=== PATIENT | female | born 1965 | race Caucasian/White ===

== ENCOUNTER 2018-11-21 21:01 | Inpatient (IN) | payer BC, OTHER ==
--- NOTE | 2018-11-21 21:12 | ED ---
HPI Diabetic - HPI Summary HPI Summary: LEVEL 5 CAVEAT: HPI LIMITED DUE TO PT CONDITION, AMS A 52 y/o F brought in by ambulance presents to ED for suspected DKA. Pt was transferred from [facility]. Her glucose at [place] was around 1000. She has been non-compliant with her HTN and DM medications. 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 She was on 3L O2 en route to ED. She tested positive for opiates at [place], she goes to the pain clinic at [facility]. At bedside, when asked questions, patient repeatedly states, I dont really know right now. POC glucose was above range , 100.1 F rectal at bedside. ED PROVIDER MET PT AND EMS IN ROOM 8 UPON ARRIVAL. - History Of Current Complaint Hx Obtained From: EMS, Medical Records Hx From Patient Unobtainable Due To: Altered Mental Status Onset/Duration: Still Present Severity Currently: Severe Aggravating: Non-compliant - Allergies/Home Medications Allergies/Adverse Reactions: Allergies Allergy/AdvReac Type Severity Reaction Status Date / Time benzocaine Allergy Severe Swelling Verified 11/21/18 23:37 benzonatate Allergy Severe Airway Verified 11/21/18 23:54 Obstruction clindamycin AdvReac Severe Nausea Verified 11/21/18 23:54 fentanyl AdvReac Severe Nausea And Verified 11/21/18 23:54 Vomiting oxymorphone [From Opana] AdvReac Severe Headache Verified 11/22/18 00:11 naproxen AdvReac Intermediate Palpitation Verified 11/22/18 00:11 s sumatriptan AdvReac Intermediate Nausea Verified 11/22/18 00:11 PMH/Surg Hx/FS Hx/Imm Hx Previously Healthy: No Endocrine/Hematology History: Reports: Hx Diabetes Cardiovascular History: Reports: Hx Hypertension - CONTROL WITH MEDS Respiratory History: Reports: Hx Sleep Apnea GI History: Reports: Other GI Disorders - CHRONIC CONSTIPATION FROM OPIODS History: Reports: Other Problems/Disorders - MASS IN UTERUS YEARS AGO, WAS REMOVED Musculoskeletal History: Reports: Hx Arthritis, Other Musculoskeletal History - BACK INJURY 2009 Sensory History: Reports: Hx Contacts or Glasses - GLASSES Denies: Hx Hearing Aid Opthamlomology History: Reports: Hx Contacts or Glasses - GLASSES Neurological History: Reports: Hx Headaches - DAILY, Hx Migraine - 2 TIMES PER MONTHS, Other Neuro Impairments/Disorders - ADHD, LYMPADEMA IN FEET AND LEGS Psychiatric History: Reports: Hx Anxiety, Hx Depression - control with meds - Surgical History Surgery Procedure, Year, and Place: 2012 LUMBAR PAIN PUMP PLACEMENT 2012, [place]. 1985 CYST REMOVED FROM UTERUS AT AGE 19YEARS, [place], [place]. 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 Lives: With Family Alcohol Use: None Hx Substance Use: Yes Substance Use Type: Reports: Prescribed Substance Use Comment - Amount & Last Used: PAIN PUMP Hx Tobacco Use: Yes Smoking Status (MU): Light Every Day Tobacco Smoker Type: Cigarettes Amount Used/How Often: ON AND OFF FOR ABOUT 20 YEARS - 3-4 CIGARETTES PER DAY Have You Smoked in the Last Year: Yes Review of Systems - ROS Summary Review of Systems Summary: LEVEL 5 CAVEAT: ROS LIMITED DUE TO PT CONDITION, AMS All Other Systems Reviewed And Are Negative: No Physical Exam - Summary Physical Exam Summary: Constitutional: Well-developed, Well-nourished, Cooperative Skin: Warm, Dry, Bilateral feet and toes are cool to touch. HENT: Normocephalic; No Racoons eyes; No rand's sign; No abrasion; No contusion; No hemotympanum; No maxilla facial tenderness or instability; Dentition are smooth; No dental trauma; No trismus. Dry oral mucosa. Eyes: EOM normal, L pupil is 4mm, R pupil is 3mm, both pupils are reactive Neck: Trachea is midline. No stridor; No JVD; No step off; No posterior cervical spine tenderness Cardio: Rhythm regular, rate normal Heart sounds normal; Intact distal pulses; The pedal pulses are 2+ and symmetric. Radial pulses are 2+ and symmetric. Pulmonary/Chest wall: Effort normal; Breath sounds normal; Equal chest rise; No flail segment; No rib tenderness; No sternal tenderness Abd: Soft, Appearance normal. No distension; No tenderness; No palpable pulsatile mass; No Cullens sign; No Meyer-Turners sign Musculoskeletal: Full ROM and no tenderness at hips, ankles, shoulders, elbows and knees; No joint swelling; No vertebral body tenderness; No paraspinal tenderness; No step off or deformity of the spine; Pelvis is stable to lateral compression and rock. Neuro: Alert, Oriented x3, Strength 5/5 all extremities. : No blood at urethral meatus Psych: Mood and affect Normal Triage Information Reviewed: Yes Vital Signs Reviewed: Yes - Jesús Coma Scale Glascow Coma Scale Comments: GCS 13. Diagnostics - Laboratory Result Diagrams: 11/27/18 07:22 11/27/18 07:22 Lab Statement: Any lab studies that have been ordered have been reviewed, and results considered in the medical decision making process. - Radiology CXR Radiology Interpretation Completed By: ED Physician Summary of Radiographic Findings: No acute disease. - EKG 2119 Cardiac Rate: Tachycardia - 118bpm EKG Rhythm: Sinus Tachycardia Summary of EKG Findings: No STEMI. Re-Evaluation - Re-Evaluation First Eval Re-Evaluation Time: 00:00 Comment: Placing central line. Diabetic Course/Dx - Course Course Of Treatment: Pt is a 52 y/o F brought in by ambulance presents to [facility] ED for suspected DKA. Pt was transferred from [facility], her glucose there was around 1000. She has been non-compliant with her HTN and DM medications. 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 She was on 3L O2 en route to ED. She tested positive for opiates at [place], she goes to the pain clinic at [facility]. At bedside, when asked questions, patient repeatedly states, I dont really know right now. POC glucose was above range, 100.1 F rectal at bedside. Spoke with pt's , who says pt has had two days of dipsia and is not known to have DM. Pt will be signed out to Dr. Longoria at shift change pending imaging results , dx and dispo. - Diagnoses Differential Dx: Diabetic Ketoacidosis, Hyperglycemia, Hyperosmolar State, Other - [facility], most likely Provider Diagnoses: DKA (diabetic ketoacidosis), Hypernatremia, Dehydration - Critical Care Time Critical Care Time: 30-74 min - 60 mins Discharge - Sign-Out/Discharge Documenting (check all that apply): Sign-Out Patient Signing out patient TO: Guillermina Longoria - Discharge Plan Condition: Improved Disposition: ADMITTED TO [facility] - Billing Disposition and Condition Condition: IMPROVED Disposition: Admitted to [facility] - Attestation Statements Document Initiated by Pranayibe: Yes Documenting Scribe: Sugey Hairston Provider For Whom Pranayibe is Documenting (Include Credential): Dr. Jonah Roque MD Scribe Attestation: ISugey, scribed for Dr. Jonah Roque MD on 12/11/18 at 0739. Scribe Documentation Reviewed: Yes Provider Attestation: The documentation as recorded by the pranayibmed, Sugey Hairston accurately reflects the service I personally performed and the decisions made by me, Dr. Jonah Roque MD Status of Scribe Document: Viewed
[2018-11-21] MEDS ORDERED: NS 0.9% 1000 ML** 1,000 ML IV ONE ×2 (21:15→22:52)
[2018-11-21] MEDS ORDERED: Insulin IVPB 100 units/100 ml 100 UNITS/100 ML UNIT IVPB ONE (21:27)
[2018-11-21 22:14] LABS: ABS Basophils 0 10^3/ul (0-0.2); ABS Eosinophils 0 10^3/ul (0-0.6); ABS Lymphocytes 4.3 10^3/ul (1.0-4.8); ABS Monocytes 1.1 10^3/ul (0-0.8); ABS Neutrophils 8.3 10^3/ul (1.5-7.7); ABS Nucleated RBC 0 10^3/ul; Eosinophil % 0 %; Hematocrit 51 % (35-47); Hemoglobin 16.5 g/dl (12.0-16.0); Lymphocyte % 30.9 %; Mean Corpuscular HGB Conc 33 g/dl (31-36); Mean Corpuscular Hemoglobin 30 pg (27-31); Mean Corpuscular Volume 92 fL (80-97); Mean Platelet Volume 11.8 fL (7.4-10.4); Nucleated Red Blood Cells % 0.2; Platelet Count 186 10^3/ul (150-450); Red Cell Distribution Width 14 % (10.5-15); White Blood Count 13.8 10^3/ul (3.5-10.8)
[2018-11-21 22:23] LABS: Activated Partial Thrombo Time 28.3 seconds (26.0-36.3); INR 0.99 (0.77-1.02)
[2018-11-21 22:33] LABS: Albumin 3.2 g/dL (3.2-5.2); BUN/Creatinine Ratio 38.2 (8-20); Calcium 9.1 mg/dL (8.6-10.3); EGFR African American 49.2 (>60); EGFR Non-African American 40.7 (>60); Globulin 3.2 g/dL (2-4); Total Bilirubin 0.4 mg/dL (0.2-1.0); Total Protein 6.4 g/dL (6.4-8.9)
[2018-11-21 22:35] LABS: Troponin I 0.03 ng/mL (<0.04)
--- NOTE | 2018-11-21 22:41 | ED ---
Progress - Progress Note Progress Note: This pt was signed out by Dr. Roque, pending disposition, awaiting cat scans and lab results. Brain CT, as read by radiologist IMPRESSION: 1. Minimal chronic ischemic white matter change. 2. Otherwise negative noncontrast head CT. Pelvis CT, as read by radiologist IMPRESSION: 1. Implanted pump in the left lateral subcutaneous fat lateral to the anterior superior iliac crest. 2. Germain catheter in the bladder. 3. Degenerative facet arthropathy of the lower lumbar spine with mild bilateral neural foraminal stenosis at L5-S1. 4. Question of early sacroiliitis. 5. Otherwise negative CT pelvis. No fracture. Cervical spine CT, as read by radiologist IMPRESSION: 1. Essentially negative CT cervical spine. No fracture or subluxation is evident and no spinal or foraminal stenosis. 2. Multiple thyroid nodules measuring up to 12 mm. No follow up is needed. Dr. Longoria has reviewed these reports. Chest XR post central line placement, as read by ED physician Triple lumen catheter in place. The tip is in the superior vena cava. No pneumothorax. Pending official radiology report. Re-Evaluation - Re-Evaluation First Eval Re-Evaluation Time: 00:00 Comment: Placing central line. Course/Dx - Course Course Of Treatment: Pt was signed out by Dr. Roque, pending disposition, awaiting cat scans and lab results. Labs show WBC of 13.8, hemoglobin of 16.5, hematocrit of 51, sodium of 154, potassium of 2.6, anion gap of 21, BUN of 52, creatinine of 1.36, glucose of 572, serum osmolality of 365, lactic acid of 2.3. Brain CT is negative for an acute pathology. Cervical CT shows 1. Essentially negative CT cervical spine. No fracture or subluxation is evident and no spinal or foraminal stenosis. 2. Multiple thyroid nodules measuring up to 12 mm. No follow up is needed. Pelvic CT reveals 1. Implanted pump in the left lateral subcutaneous fat lateral to the anterior superior iliac crest. 2. Germain catheter in the bladder. 3. Degenerative facet arthropathy of the lower lumbar spine with mild bilateral neural foraminal stenosis at L5-S1. 4. Question of early sacroiliitis. 5. Otherwise negative CT pelvis. No fracture. I consulted with Dr. Smith, slitting machine operator helper, and reviewed pt's blood work with him. He recommended one half normal saline with 40 mEq of potassium and 200-300 CC/hour. I placed a triple lumen central line on the right internal jugular without any complications. Please see procedure note. Chest XR post central line placement shows triple lumen catheter in place. The tip is in the superior vena cava. No pneumothorax. Discussed the case with Dr. Randle, hospitalist, who accepted the pt for admission to the ICU. - Diagnoses Provider Diagnoses: DKA (diabetic ketoacidosis), Hypernatremia, Dehydration - Provider Notifications Discussed Care Of Patient With: Ricky Smith Time Discussed With Above Provider: 23:20 Instructed by Provider To: Other - I consulted with Dr. Smith, slitting machine operator helper, and reviewed pt's blood work with him. He recommended one half normal saline with 40 mEq of potassium and 200-300 CC/hour. [23:34] Discussed the case with Dr. Randle, hospitalist, who accepted the pt for admission. - Critical Care Time Critical Care Time: 30-74 min - 45 minutes Discharge - Sign-Out/Discharge Documenting (check all that apply): Patient Departure - [place] [facility] Sign-Out Receiving patient FROM: Jonah Roque Patient Received Moderate/Deep Sedation with Procedure: No - Discharge Plan Condition: Stable Disposition: ADMITTED TO [facility] Referrals: Daniel Ram MD [Medical Doctor] - - Attestation Statements Document Initiated by Scribe: Yes Documenting Scribe: Alejandra Abrams Provider For Whom Scribe is Documenting (Include Credential): Guillermina Longoria MD Scribe Attestation: I, Alejandra Abrams, scribed for Guillermina Longoria MD on 11/22/18 at 0043. Status of Scribe Document: Ready Procedures - Central Line Right Jugular Central Line Lumen: triple Central Line Procedure: betadine prep, sterile drapes applied, sterile dressing applied Central Line Position: internal jugular (R) Anesthesia: Lidocaine - 2% Complications: none Central Line Post Position: sutured, good blood return, position confirmed w/ CXR
[2018-11-21] MEDS ORDERED: Piperacillin/Tazobac ADVAN(*) 3.375 GM in NS 0.9% 100 ML* 100 ML IVPB ONE (22:52)
[2018-11-21] MEDS ORDERED: Naloxone* 0.4 MG/ML 1 ML VIAL IV PUSH ONE (22:52)
[2018-11-21] MEDS ORDERED: ED Vancomycin 1 GM/250 ML 1 GM/250 ML PREMIX.SET IVPB ONE (22:53)
[2018-11-21] MEDS ORDERED: NS 0.45% IVPB ONE ×3 (23:00→23:33)
[2018-11-21] MEDS ORDERED: NS 0.9% 1000 ML** 1,000 ML IV SCH (23:00)
[2018-11-21] MEDS ORDERED: POTASSIUM CHLORIDE IVPB ONE ×3 (23:00→23:33)
[2018-11-21 23:12] LABS: Potassium 2.6 mmol/L (3.5-5.0)
[2018-11-21] MEDS ORDERED: Lidocaine 2% EPI 1:200000 MPF*10-20 ML VIAL ONE (23:39)
[2018-11-21] MEDS ORDERED: NS 0.45% KCl 20 Meq 1000 ML* 1,000 ML IV SCH (23:45)
[2018-11-21] MEDS ORDERED: Zosyn per Pharmacy* NOTE FOLLOW UP SCH (23:45)
[2018-11-21] MEDS ORDERED: NS 0.9% w/ 40 Meq KCL 1000 ML* 1,000 ML IV SCH (23:45)
[2018-11-21] MEDS ORDERED: Vancomycin(*) 0 MG in NS 0.9% 250 ML* 250 ML IVPB SCH (23:45)
[2018-11-21] MEDS ORDERED: Ondansetron INJ* 2 MG/ML VIAL IV PRN (23:48)
[2018-11-22 00:12] LABS: C Reactive Protein 13.46 mg/L (<8.01)
[2018-11-22 00:28] LABS: TSH (Thyroid Stimulating Horm) 0.13 mcIU/mL (0.34-5.60)
[2018-11-22 00:44] LABS: Magnesium 1.6 mg/dL (1.9-2.7)
[2018-11-22] MEDS ORDERED: LORazepam INJ* 2 MG/ML 1 ML VIAL IV PUSH ONE (01:08)
[2018-11-22] MEDS ORDERED: LORazepam INJ* 2 MG/ML 1 ML VIAL ONE ×2 (01:10→05:20)
[2018-11-22] MEDS ORDERED: Vancomycin(*) 1,000 MG BAG/ADDV IVPB ONE (01:33)
[2018-11-22] MEDS ORDERED: NS 0.45% IVPB SCH (02:00)
[2018-11-22] MEDS ORDERED: POTASSIUM CHLORIDE IVPB SCH (02:00)
[2018-11-22 02:05] LABS: Free T4 0.75 ng/dL (0.61-1.12)
--- NOTE | 2018-11-22 02:52 | HP ---
CC: Primary care physician* HISTORY AND PHYSICAL: DATE OF ADMISSION: 11/21/18 TIME OF EVALUATION: 2300 PRIMARY CARE PHYSICIAN: Unknown. CHIEF COMPLAINT: Altered mental status. HISTORY OF PRESENT ILLNESS: This is a 52-year-old female with a past medical history of chronic pain with an intrathecal implant who presents to the emergency room from [place] [facility] with altered mental status, found to have blood glucose greater than 1000. Patient is still altered and history is obtained by the , who states over the past few days she has noticed increase in thirst, increase in polyuria. He thought that was just attributed to that she is on a water pill. She has also been having issues with constipation. Today, he found her falling asleep on the toilet and brought her to the emergency room for further evaluation. She does have issues with chronic lower extremity swelling with open sores on her leg, which is being managed by her primary care physician. He denied any fevers or chills. She has not been vomiting. She has been having issues with constipation, as mentioned. She does have chronic back pain. He states she has not been complaining that there has been an increase in worsening pain. Otherwise, review of systems limited due to patient's somnolence and altered mental status. At [place], the patient was started on an insulin drip and sent over to the emergency room for further workup. Here in the emergency room, patient had a line placed, she was continued on insulin drip, given more IV fluids, and referred to the hospitalist service for further evaluation. PAST MEDICAL HISTORY: 1. History of hypertension. 2. Per , she has erratic sleep habits. 3. Chronic low back pain after a fall, now with an intrathecal implant. 4. Chronic lower extremity edema. 5. Chronic wound. 6. Depression. MEDICATIONS: This list is from [place]. We will need to call the pharmacy to confirm. 1. Alprazolam 0.25 mg daily. 2. Amitriptyline 25 mg at bedtime. 3. Aspirin 81 mg daily. 4. Atenolol 25 mg daily. 5. Bumetanide 1 mg orally. 6. Bupropion XL 150 mg daily. 7. Keflex 500 mg daily. 8. Diclofenac. 9. Ellipta 50 mcg inhaled. 10. Morphine 15 mg. 11. Zofran 4 mg. 12. MiraLAX. 13. Topamax 25 mg daily. 14. Torsemide 20 mg daily. 15. Trazodone 100 mg daily. 16. Vitamin E 400 mg daily. 17. Ambien 5 mg daily. ALLERGIES: BENZOCAINE, BENZONATATE, OXYMORPHONE, NAPROXEN, SUMATRIPTAN, CLINDAMYCIN, FENTANYL. FAMILY HISTORY: Both parents are alive. Mother has Alzheimer's. Father does have cardiac disease in his 70s. SOCIAL HISTORY: Patient lives at home with her , who is her healthcare proxy. 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 She is still smoking quarter to half a pack per day on and off for the past 20 years. Very little alcohol use. No illicit drug use. She ambulates with a cane. Code status is full code. REVIEW OF SYSTEMS: Limited due to patient's somnolence. PHYSICAL EXAMINATION GENERAL: Patient is somnolent. She does awake to voice, but then quickly falls back to sleep. She has diffuse erythema on her lower extremities and on her torso. Per her , she has chronic lower extremity redness, but not this significant. VITAL SIGNS: Temp is 100.1, pulse rate is 130, respiratory rate is 18, oxygen saturation is 93% on 4 L, blood pressure is 127/88. HEENT: Head normocephalic. Pupils are dilated and reactive, mild conjunctival injection. Oropharynx: Mucous membranes are dry. NECK: Supple. RESPIRATORY: Diminished breath sounds. No wheezes, rhonchi, or rales. No increased work of breathing. CARDIAC: Tachycardia. Soft systolic murmur heard throughout. ABDOMEN: She does groan on palpation, morbidly obese. Implant noted to be in the left lower quadrant. EXTREMITIES: She has chronic lower extremity lymphedema with superficial healing wounds on her lower extremities bilateral with distal pulses. NEUROLOGIC: No gross focal abnormalities. She is moving all extremities. She is somnolent, difficulty with following commands. DIAGNOSTIC STUDIES/LAB DATA: Laboratory Data: White count 13.8, hemoglobin 16.5, hematocrit 51, platelets 186. INR 0.99. Blood gas, pH is 7.33, pCO2 is 42 , pO2 is 88. Sodium was 154, potassium 2.6, chloride 111, bicarb 22, BUN 52, creatinine 1.36, glucose 572, lactic acid 2.3. Troponin 0.03. Radiographic Data: Pelvis CT shows implanted pump in the left lateral subcutaneous fat lateral to the anterior sacroiliac crest. Germain catheter in the bladder. Degenerative facet arthropathy of the lower lumbar spine with mild bilateral neural foraminal stenosis, question of early sacroiliitis, no fracture. Cervical spine CT, essentially negative CT cervical spine. No fracture or subluxation is evident and no spinal or foraminal stenosis. Multiple thyroid nodules measuring up to [address], minimal chronic ischemic white matter change. EKG shows sinus tachycardia. Chest x-ray, wet read unremarkable. ASSESSMENT: This is a 52-year-old female with past medical history of chronic pain with an implanted intrathecal pump, on multiple medications, who presents to the emergency room with altered mental status, found to be in diabetic ketoacidosis versus hyperosmolar hyperglycemic state. 1. Altered mental status. Assessment: This could just be from hyperosmolar hyperglycemic state versus diabetic ketoacidosis. She has continued to have anion gap metabolic acidosis from her elevated glucose. Her altered mental status could be also concern for an infection. There is a question of early sacroiliitis on her CAT scan, though she has not been complaining from her of worsening low back pain. She has the intrathecal pump which is concerning. She does have some tenderness, no abdominal pain. Per , she has constipation. I do not have a urine yet. Plan: Patient is going to go to the ICU for insulin drip and IV fluid management. We will continue to check a BMP every 4 hours and monitor her glucose every hour. I am going to trend her troponin as well. I am going to add on CRP, sed rate. She had blood cultures done in the emergency room. We will continue on vanco and Zosyn for now until her blood cultures are negative or a source is found. She cannot have an MRI due to the implant. Consider further followup of the sacroiliitis if infection is still on the differential. I am also going to get an abdomen and pelvis CT to rule out any other abdominal pathology. 2. Chronic medical problems. As mentioned, patient is on multiple medications. It is not clear how up-to- date this is. We will have the pharmacy call in the morning to obtain an official med rec. I am going to hold all her p.o. medications in the setting of her somnolent state. We will order IV morphine for her when she becomes alert or if there is any concern for withdrawal. 3. FEN. N.p.o. in her somnolent state with IV fluids. 4. DVT prophylaxis. The patient scores moderate risk, will place her on heparin subcu t.i.d. 5. Code status. Full code. PATIENT TIME: Greater than 60 minutes spent doing this history and physical, more than half the time in direct patient contact and critical care time. [id number]/CPS #: [id number] NILDA
[2018-11-22] MEDS ORDERED: Insulin IVPB 100 units/100 ml 100 UNITS/100 ML UNIT IVPB SCH (03:00)
[2018-11-22] MEDS ORDERED: Vancomycin(*) 1,000 MG in NS 0.9% 250 ML* 250 ML IVPB ONE (03:00)
[2018-11-22] MEDS ORDERED: Vancomycin per Pharmacy* NOTE FOLLOW UP PRN (03:13)
[2018-11-22] MEDS: ZOSYN 3.375 GM Q8H per EXTENDED INFUSION IVPB SCH ×6 (04:53→20:27)
[2018-11-22 04:59] LABS: BUN/Creatinine Ratio 37.2 (8-20); Blood Urea Nitrogen 45 mg/dL (6-24); CO2 Carbon Dioxide 31 mmol/L (22-32); Calcium 9.3 mg/dL (8.6-10.3); EGFR African American 56.3 (>60); EGFR Non-African American 46.5 (>60); Glucose 273 mg/dL (70-100)
[2018-11-22 05:03] LABS: Anion Gap 8 mmol/L (2-11); Chloride 119 mmol/L (101-111); Sodium 158 mmol/L (135-145)
[2018-11-22] MEDS ORDERED: D5W 1000 ML BAG* 1,000 ML IV SCH ×3 (05:08→16:49)
--- NOTE | 2018-11-22 05:11 | PN ---
Progress Note - Progress Note Date of Service: 11/22/18 Note: Patient's gap is closed but her sodium continues to climb despite being on 1/ 2NS - will change to d5 @ 100 cc/hr and continue insulin drip while she is on this. Trop elevated - will obtain echo. Patient restless, agitated - will order ativan prn
[2018-11-22 05:19] LABS: Troponin I 0.16 ng/mL (<0.04)
[2018-11-22 05:20] LABS: Hematocrit 47 % (35-47); Hemoglobin 15.5 g/dl (12.0-16.0); Mean Corpuscular HGB Conc 33 g/dl (31-36); Mean Corpuscular Hemoglobin 30 pg (27-31); Mean Corpuscular Volume 90 fL (80-97); Mean Platelet Volume 11.4 fL (7.4-10.4); Platelet Count 172 10^3/ul (150-450); Red Blood Count 5.22 10^6/ul (4.00-5.40); Red Cell Distribution Width 14 % (10.5-15); White Blood Count 19.8 10^3/ul (3.5-10.8)
[2018-11-22] MEDS: Heparin VIAL(*) 5000 UNITS/ML VIAL (FIVE THOUSAND) SUBCUT SCH ×3 (05:29→23:20)
[2018-11-22] MEDS: LORazepam INJ* 2 MG/ML 1 ML VIAL IV PUSH PRN ×3 (05:29→15:53)
[2018-11-22 05:35] LABS: Urine Appearance Turbid; Urine Bacteria Absent (Absent); Urine Bilirubin Negative (Negative); Urine Blood Negative (Negative); Urine Color Straw; Urine Glucose 3+(>=500 mg/dL) (Negative); Urine Ketones 1+ (Negative); Urine Nitrite Negative (Negative); Urine Protein 2+(100 mg/dL) (Negative); Urine Red Blood Cell 2+(6-10/hpf) (Absent); Urine Specific Gravity 1.035 (1.010-1.030); Urine Squamous Epithelial Cell Present (Absent); Urine Urobilinogen Negative (Negative); Urine White Blood Cell Trace(0-5/hpf) (Absent)
[2018-11-22 05:36] LABS: ALT 29 U/L (7-52); Albumin 3.1 g/dL (3.2-5.2); Albumin/Globulin Ratio 1.1 (1-3); Alkaline Phosphatase 147 U/L (34-104); BUN/Creatinine Ratio 36.8 (8-20); Blood Urea Nitrogen 43 mg/dL (6-24); CO2 Carbon Dioxide 31 mmol/L (22-32); Calcium 9.2 mg/dL (8.6-10.3); Cholesterol 575 mg/dL; EGFR African American 58.5 (>60); EGFR Non-African American 48.4 (>60); Globulin 2.9 g/dL (2-4); Glucose 214 mg/dL (70-100); HDL Cholesterol 17.2 mg/dL
[2018-11-22 05:55] LABS: ABS Basophils 0.1 10^3/ul (0-0.2); ABS Eosinophils 0 10^3/ul (0-0.6); ABS Lymphocytes 5.1 10^3/ul (1.0-4.8); ABS Monocytes 0.9 10^3/ul (0-0.8); ABS Neutrophils 13.7 10^3/ul (1.5-7.7); ABS Nucleated RBC 0.1 10^3/ul; Eosinophil % 0 %; Nucleated Red Blood Cells % 0.2
[2018-11-22 06:07] LABS: Anion Gap 8 mmol/L (2-11); Chloride 120 mmol/L (101-111); Sodium 159 mmol/L (135-145)
[2018-11-22 06:20] LABS: Triglycerides 2620 mg/dL
[2018-11-22 07:13] LABS: LDL Cholesterol Direct 68 mg/dL
[2018-11-22] MEDS: Insulin IVPB 100 units/100 ml 100 UNITS/100 ML UNIT IVPB SCH ×2 (07:19→17:38)
[2018-11-22 07:52] LABS: BUN/Creatinine Ratio 35.4 (8-20); Blood Urea Nitrogen 40 mg/dL (6-24); CO2 Carbon Dioxide 30 mmol/L (22-32); Calcium 9.4 mg/dL (8.6-10.3); EGFR African American 60.9 (>60); EGFR Non-African American 50.4 (>60); Glucose 111 mg/dL (70-100)
[2018-11-22 07:57] LABS: Chloride 121 mmol/L (101-111)
[2018-11-22 07:58] LABS: Anion Gap 9 mmol/L (2-11); Sodium 160 mmol/L (135-145)
[2018-11-22] MEDS ORDERED: Perflutren Lipid Microsphere* 3 ML VIAL ONE (11:07)
[2018-11-22 11:50] LABS: C Reactive Protein 11.35 mg/L (<8.01)
[2018-11-22] MEDS: Morphine 4 MG/ML VIAL (1 ml) 4 MG/ML VIAL IV PRN ×2 (11:59→15:53)
[2018-11-22] MEDS ORDERED: Haloperidol INJ IV/IM* 5 MG/ML AMP ONE (12:05)
[2018-11-22 12:23] LABS: Erythrocyte Sed Rate 29 mm/Hr (0-30)
[2018-11-22] MEDS ORDERED: Haloperidol INJ IV/IM* 5 MG/ML AMP IM ONE (12:50)
[2018-11-22] MEDS: Vancomycin(*) 1,000 MG in NS 0.9% 250 ML* 250 ML IVPB SCH (13:41)
[2018-11-22 14:11] LABS: Erythrocyte Sed Rate 29 mm/Hr (0-30)
[2018-11-22 14:25] LABS: CRP High Sensitivity 13.33 mg/L (<2.00)
[2018-11-22] MEDS ORDERED: Metoprolol Tartrate IV* 1 MG/ML 5 ML VIAL IV PRN (15:51)
[2018-11-22] MEDS ORDERED: Insulin REGULAR(*) 1 UNITS UNIT IV PUSH ONE (17:08)
--- NOTE | 2018-11-22 17:11 | HP ---
History of Present Illness - History of Present Illness Reason for Visit: acute encephalopathy, severe hypernatremia History of Present Illness: CRITICAL CARE INITIAL NOTE 52 F with hx/o chronic pain on intrathecal infusion transferred to ICU care on 11/22/18 due to progressive AMS in the setting of hypernatremia. She was BIBA for suspected DKA 1 day ago from [facility]. Her glucose at [place] was around 1000. She has been non-compliant with her HTN and DM medications. According to chart review, her found her on the floor 1 day ago In the ED, noted to be febrile 100.1F Patient goes to pain clinic at [facility]. - Past Medical History Cardiac: HTN Pulmonary: Other - BREE Psych: Depression Musculoskeletal: Chronic low back pain - WITH INTRATHECAL INPLANT FOR PAIN MEDS Dermatology: Cellulitis - Past Surgical History Past Surgical History: Other - UNABLE TO OBTAIN DUE TO PATIENT MENTAL STATUS - Past Family History Family History: Other - LIKELY NONCONTRIBUTORY; UNABLE TO OBTAIN DUE TO PATIENT MENTAL STATUS - Past Social History Drugs: Other - UNABLE TO OBTAIN DUE TO PATIENT MENTAL STATUS Review of Systems - Review of Systems Constitutional: Positive: Fever, Weakness Eyes: Negative: Pain ENT: Negative: Ear Pain Respiratory: Positive: Shortness of Breath Skin: Positive: Lesions Neurological: Positive: Weakness - Medications/Allergies Allergies/Adverse Reactions: Allergies Allergy/AdvReac Type Severity Reaction Status Date / Time benzocaine Allergy Severe Swelling Verified 11/21/18 23:37 benzonatate Allergy Severe Airway Verified 11/21/18 23:54 Obstruction clindamycin AdvReac Severe Nausea Verified 11/21/18 23:54 fentanyl AdvReac Severe Nausea And Verified 11/21/18 23:54 Vomiting oxymorphone [From Opana] AdvReac Severe Headache Verified 11/22/18 00:11 naproxen AdvReac Intermediate Palpitation Verified 11/22/18 00:11 s sumatriptan AdvReac Intermediate Nausea Verified 11/22/18 00:11 Medications: Current Medications Heparin Sodium (Porcine) (Heparin Vial(*)) 5,000 units SUBCUT Q8HR [facility] Last Admin: 11/22/18 13:42 Dose: 5,000 units Piperacillin Sod/Tazobactam (Sod 3.375 gm/ Sodium Chloride) 100 mls @ 25 mls/ hr IVPB Q8H [facility] Last Admin: 11/22/18 12:17 Dose: 25 mls/hr Vancomycin HCl 1,000 mg/ (Sodium Chloride) 250 mls @ 166.667 mls/hr IVPB Q12H [facility] Last Admin: 11/22/18 13:41 Dose: 166.667 mls/hr Insulin Human Regular (Insulin Regular Iv Drip 1 Unit/Ml) 100 units in 100 mls @ 9.072 mls/hr IVPB Q10H [facility]; Protocol Last Admin: 11/22/18 07:19 Dose: 9.072 mls/hr Dextrose (D5w 1000 Ml Bag*) 1,000 mls @ 150 mls/hr IV PER RATE [facility] Last Admin: 11/22/18 14:10 Dose: 150 mls/hr Lorazepam (Ativan Inj*) 1 mg IV PUSH Q6H PRN PRN Reason: ANXIETY Last Admin: 11/22/18 15:53 Dose: 1 mg Metoprolol Tartrate (Lopressor Iv*) 5 mg IV Q6H PRN PRN Reason: BLOOD PRESSURE Last Admin: 11/22/18 16:00 Dose: 5 mg Morphine Sulfate (Morphine Vial*) 2 mg IV Q4H PRN PRN Reason: PAIN - MILD Last Admin: 11/22/18 15:53 Dose: 2 mg Ondansetron HCl (Zofran Inj*) 4 mg IV Q4H PRN PRN Reason: NAUSEA/VOMITING Pharmacy Consult (Zosyn Per Pharmacy*) 1 note FOLLOW UP .ZOSYN PER PHARMACY [facility] Pharmacy Consult (Vancomycin Per Pharmacy*) 1 note FOLLOW UP . PRN PRN Reason: PER PROTOCOL Pharmacy Profile Note (Vancomycin Trough Check) 1 note FOLLOW UP 1330 ONE Stop: 11/23/18 13:31 Exam - Exam Vital Signs: Vital Signs (72 hours) 11/21/18 11/21/18 11/21/18 21:06 21:15 21:16 Temperature 100.1 F Pulse Rate 122 122 120 Respiratory 17 16 17 Rate Blood Pressure 137/84 117/74 117/74 (mmHg) O2 Sat by Pulse 95 96 95 Oximetry 11/21/18 11/21/18 11/21/18 21:30 21:45 22:00 Temperature Pulse Rate 117 122 120 Respiratory 19 19 17 Rate Blood Pressure 118/88 108/77 (mmHg) O2 Sat by Pulse 96 97 96 Oximetry 11/21/18 11/21/18 11/21/18 22:36 22:45 23:00 Temperature Pulse Rate 122 123 130 Respiratory 18 21 18 Rate Blood Pressure 127/95 132/98 127/88 (mmHg) O2 Sat by Pulse 94 94 93 Oximetry 11/21/18 11/21/18 11/22/18 23:30 23:45 00:00 Temperature Pulse Rate 128 126 127 Respiratory 13 15 14 Rate Blood Pressure 123/88 118/81 135/84 (mmHg) O2 Sat by Pulse 93 96 95 Oximetry 11/22/18 11/22/18 11/22/18 00:22 00:30 00:34 Temperature Pulse Rate 134 132 132 Respiratory 19 14 17 Rate Blood Pressure 128/101 133/96 (mmHg) O2 Sat by Pulse 93 94 94 Oximetry 11/22/18 11/22/18 11/22/18 00:41 00:45 01:10 Temperature 96.4 F Pulse Rate 134 134 Respiratory 12 17 Rate Blood Pressure 131/95 (mmHg) O2 Sat by Pulse 94 91 Oximetry 11/22/18 11/22/18 11/22/18 01:14 01:15 01:45 Temperature Pulse Rate 134 134 Respiratory 22 19 19 Rate Blood Pressure 129/90 130/94 (mmHg) O2 Sat by Pulse 92 90 Oximetry 11/22/18 11/22/18 11/22/18 02:01 02:03 02:04 Temperature 96.8 F 97.1 F Pulse Rate 132 133 133 Respiratory 22 18 18 Rate Blood Pressure 128/76 128/76 (mmHg) O2 Sat by Pulse 91 93 97 Oximetry 11/22/18 11/22/18 11/22/18 02:43 02:45 03:00 Temperature Pulse Rate 128 129 131 Respiratory 16 16 24 Rate Blood Pressure 135/68 116/75 133/68 (mmHg) O2 Sat by Pulse 96 95 98 Oximetry 11/22/18 11/22/18 11/22/18 03:01 03:15 03:24 Temperature Pulse Rate 127 134 Respiratory 17 18 17 Rate Blood Pressure 129/89 (mmHg) O2 Sat by Pulse 99 95 Oximetry 11/22/18 11/22/18 11/22/18 03:31 03:45 04:00 Temperature Pulse Rate 127 132 130 Respiratory 22 23 20 Rate Blood Pressure 117/87 132/84 131/97 (mmHg) O2 Sat by Pulse 80 95 96 Oximetry 03/08/19 03/08/19 03/08/19 04:16 04:30 04:46 Temperature Pulse Rate 135 132 131 Respiratory 17 Rate Blood Pressure 131/80 116/89 133/80 (mmHg) O2 Sat by Pulse 97 94 94 Oximetry 11/22/18 11/22/18 11/22/18 05:00 05:15 05:29 Temperature Pulse Rate 131 129 Respiratory 18 16 19 Rate Blood Pressure 128/80 127/71 (mmHg) O2 Sat by Pulse 91 91 Oximetry 11/22/18 11/22/18 11/22/18 05:30 06:00 06:02 Temperature Pulse Rate 132 129 129 Respiratory 18 14 20 Rate Blood Pressure 131/83 129/70 (mmHg) O2 Sat by Pulse 95 96 96 Oximetry 11/22/18 11/22/18 11/22/18 06:15 06:30 06:46 Temperature Pulse Rate 132 130 131 Respiratory 21 14 18 Rate Blood Pressure 129/94 116/87 105/84 (mmHg) O2 Sat by Pulse 90 98 92 Oximetry 11/22/18 11/22/18 11/22/18 07:00 07:01 07:15 Temperature Pulse Rate 121 130 132 Respiratory 23 13 12 Rate Blood Pressure 123/79 126/59 (mmHg) O2 Sat by Pulse 94 89 Oximetry 11/22/18 11/22/18 11/22/18 07:30 07:45 07:54 Temperature Pulse Rate 130 131 Respiratory 17 20 Rate Blood Pressure 117/69 122/79 (mmHg) O2 Sat by Pulse 95 86 98 Oximetry 11/22/18 11/22/18 11/22/18 08:00 08:01 08:16 Temperature Pulse Rate 131 132 131 Respiratory 35 14 14 Rate Blood Pressure 129/87 137/80 (mmHg) O2 Sat by Pulse 95 98 97 Oximetry 11/22/18 11/22/18 11/22/18 08:20 08:30 08:45 Temperature 97.6 F Pulse Rate 131 131 Respiratory 23 16 Rate Blood Pressure 140/89 112/91 (mmHg) O2 Sat by Pulse 96 96 Oximetry 11/22/18 11/22/18 11/22/18 09:00 09:01 09:15 Temperature Pulse Rate 130 130 129 Respiratory 21 20 20 Rate Blood Pressure 134/85 118/77 (mmHg) O2 Sat by Pulse 92 92 95 Oximetry 11/22/18 11/22/18 11/22/18 09:30 09:45 10:00 Temperature Pulse Rate 133 132 134 Respiratory 23 22 18 Rate Blood Pressure 131/92 125/89 103/79 (mmHg) O2 Sat by Pulse 91 89 92 Oximetry 11/22/18 11/22/18 11/22/18 10:01 10:15 10:46 Temperature Pulse Rate 134 132 137 Respiratory 23 39 20 Rate Blood Pressure 108/84 116/86 (mmHg) O2 Sat by Pulse 91 90 92 Oximetry 11/22/18 11/22/18 11/22/18 11:00 11:01 11:15 Temperature Pulse Rate 136 136 135 Respiratory 20 25 21 Rate Blood Pressure 139/96 119/90 (mmHg) O2 Sat by Pulse 90 90 91 Oximetry 11/22/18 11/22/18 11/22/18 11:30 11:46 11:59 Temperature Pulse Rate 134 133 Respiratory 19 25 25 Rate Blood Pressure 105/83 107/90 (mmHg) O2 Sat by Pulse 90 92 Oximetry 11/22/18 11/22/18 11/22/18 12:00 12:02 12:15 Temperature 100.4 F Pulse Rate 143 142 135 Respiratory 24 20 18 Rate Blood Pressure 158/106 125/85 (mmHg) O2 Sat by Pulse 93 91 92 Oximetry 11/22/18 11/22/18 11/22/18 12:30 12:45 13:00 Temperature Pulse Rate 142 135 139 Respiratory 23 19 23 Rate Blood Pressure 137/99 120/77 138/87 (mmHg) O2 Sat by Pulse 84 95 92 Oximetry 11/22/18 11/22/18 11/22/18 13:15 13:30 13:45 Temperature Pulse Rate 137 137 136 Respiratory 21 7 17 Rate Blood Pressure 123/78 132/82 156/84 (mmHg) O2 Sat by Pulse 93 90 92 Oximetry 11/22/18 11/22/18 11/22/18 14:00 14:02 14:15 Temperature Pulse Rate 133 139 132 Respiratory 19 14 14 Rate Blood Pressure 113/73 121/79 (mmHg) O2 Sat by Pulse 91 90 93 Oximetry 11/22/18 11/22/18 11/22/18 14:30 14:45 15:00 Temperature Pulse Rate 132 134 138 Respiratory 20 21 16 Rate Blood Pressure 117/77 124/80 137/90 (mmHg) O2 Sat by Pulse 93 93 92 Oximetry 11/22/18 11/22/18 11/22/18 15:01 15:15 15:30 Temperature Pulse Rate 136 136 136 Respiratory 15 19 23 Rate Blood Pressure 131/81 115/70 (mmHg) O2 Sat by Pulse 93 93 91 Oximetry 11/22/18 11/22/18 11/22/18 15:45 15:53 16:00 Temperature 100.9 F Pulse Rate 138 Respiratory 21 20 19 Rate Blood Pressure 137/93 (mmHg) O2 Sat by Pulse 89 Oximetry 11/22/18 16:01 Temperature Pulse Rate 140 Respiratory 36 Rate Blood Pressure 154/78 (mmHg) O2 Sat by Pulse 82 Oximetry General: Other - Somnolent, responsive to sternal rub, but all wakes out without stimuli at times HEENT: Atraumatic, PERRLA Lungs: Other - coarse breath sounds bilaterally Cardiovascular: Normal S1, Normal S2, Other - tachycardia Abdomen: Soft, No tenderness, Other - palpated intrathecal pump in the lateral LLQ of abdomen. Obese abdomen Extremities: No cyanosis, Other - chronic skin changes with open wounds dime sized (posterior RLE) Neurological: Other - nonfocal Assessment/Plan - Assessment/Plan Assessment: Labs . 11/21/18 11/21/18 11/21/18 21:05 21:08 22:04 WBC 13.8 H RBC 5.50 H Hgb 16.5 H Hct 51 H MCV 92 MCH 30 MCHC 33 RDW 14 Plt Count 186 MPV 11.8 H Neut % (Auto) 60.6 Lymph % (Auto) 30.9 [place] % (Auto) 8.2 Eos % (Auto) 0 Baso % (Auto) 0.3 Absolute Neuts (auto) 8.3 H Absolute Lymphs (auto) 4.3 Absolute Monos (auto) 1.1 H Absolute Eos (auto) 0 Absolute Basos (auto) 0 Absolute Nucleated RBC 0 Nucleated RBC % 0.2 ESR 29 INR (Anticoag Therapy) APTT Patient Temperature Not Reportable ABG pH 7.33 L ABG pH (Temp Correct) Suture Winder Hand ABG pCO2 42 ABG pCO2 (Temp Corrct Not Reportable ABG pO2 88 ABG pO2 (Temp Correct Not Reportable ABG HCO3 22.0 ABG O2 Saturation 98.1 H ABG Base Excess -3.7 L Respiration Rate Not Reportable O2 Delivery Device nc Ventilator Type Not Reportable Vent Mode Not Reportable FiO2 3 Inspiratory Time Not Reportable PEEP Not Reportable Pressure Support Not Reportable Pressure Control Not Reportable EPAP Not Reportable IPAP Not Reportable BiPAP Not Reportable Sodium Potassium Chloride Carbon Dioxide Anion Gap BUN Creatinine Est GFR ( Amer) Est GFR (Non-Af Amer) BUN/Creatinine Ratio Glucose POC Glucose (mg/dL) > 444 H* Hemoglobin A1c Serum Osmolality Lactic Acid Calcium Phosphorus Magnesium Total Bilirubin AST ALT Alkaline Phosphatase Total Creatine Kinase Troponin I C-Reactive Protein C-React Prot High Sens Total Protein Albumin Globulin Albumin/Globulin Ratio Triglycerides Cholesterol LDL Cholesterol LDL Cholesterol Direct HDL Cholesterol TSH Free T4 Urine Color Urine Appearance Urine pH Ur Specific [place] Urine Protein Urine Ketones Urine Blood Urine Nitrate Urine Bilirubin Urine Urobilinogen Ur Leukocyte Esterase Urine WBC (Auto) Urine RBC (Auto) Ur Squamous Epith Cells Urine Bacteria Urine Glucose Urine Ascorbic Acid 11/21/18 11/21/18 11/21/18 22:04 22:04 22:04 WBC RBC Hgb Hct MCV MCH MCHC RDW Plt Count MPV Neut % (Auto) Lymph % (Auto) [place] % (Auto) Eos % (Auto) Baso % (Auto) Absolute Neuts (auto) Absolute Lymphs (auto) Absolute Monos (auto) Absolute Eos (auto) Absolute Basos (auto) Absolute Nucleated RBC Nucleated RBC % ESR INR (Anticoag Therapy) 0.99 APTT 28.3 Patient Temperature ABG pH ABG pH (Temp Correct) ABG pCO2 ABG pCO2 (Temp Corrct ABG pO2 ABG pO2 (Temp Correct ABG HCO3 ABG O2 Saturation ABG Base Excess Respiration Rate O2 Delivery Device Ventilator Type Vent Mode FiO2 Inspiratory Time PEEP Pressure Support Pressure Control EPAP IPAP BiPAP Sodium 154 H Potassium 2.6 L* Chloride 111 Carbon Dioxide 22 Anion Gap 21 H BUN 52 H Creatinine 1.36 H Est GFR ( Amer) 49.2 Est GFR (Non-Af Amer) 40.7 BUN/Creatinine Ratio 38.2 H Glucose 572 H* POC Glucose (mg/dL) Hemoglobin A1c Serum Osmolality Lactic Acid 2.3 H* Calcium 9.1 Phosphorus 3.0 Magnesium 1.6 L Total Bilirubin 0.40 AST 8 L ALT 32 Alkaline Phosphatase 160 H Total Creatine Kinase 25 Troponin I 0.03 C-Reactive Protein 13.46 H C-React Prot High Sens Total Protein 6.4 Albumin 3.2 Globulin 3.2 Albumin/Globulin Ratio 1.0 Triglycerides Cholesterol LDL Cholesterol LDL Cholesterol Direct HDL Cholesterol TSH 0.13 L Free T4 0.75 Urine Color Urine Appearance Urine pH Ur Specific [place] Urine Protein Urine Ketones Urine Blood Urine Nitrate Urine Bilirubin Urine Urobilinogen Ur Leukocyte Esterase Urine WBC (Auto) Urine RBC (Auto) Ur Squamous Epith Cells Urine Bacteria Urine Glucose Urine Ascorbic Acid 11/21/18 11/21/18 11/21/18 22:04 22:04 23:17 WBC RBC Hgb Hct MCV MCH MCHC RDW Plt Count MPV Neut % (Auto) Lymph % (Auto) [place] % (Auto) Eos % (Auto) Baso % (Auto) Absolute Neuts (auto) Absolute Lymphs (auto) Absolute Monos (auto) Absolute Eos (auto) Absolute Basos (auto) Absolute Nucleated RBC Nucleated RBC % ESR INR (Anticoag Therapy) APTT Patient Temperature ABG pH ABG pH (Temp Correct) ABG pCO2 ABG pCO2 (Temp Corrct ABG pO2 ABG pO2 (Temp Correct ABG HCO3 ABG O2 Saturation ABG Base Excess Respiration Rate O2 Delivery Device Ventilator Type Vent Mode FiO2 Inspiratory Time PEEP Pressure Support Pressure Control EPAP IPAP BiPAP Sodium Potassium Chloride Carbon Dioxide Anion Gap BUN Creatinine Est GFR ( Amer) Est GFR (Non-Af Amer) BUN/Creatinine Ratio Glucose POC Glucose (mg/dL) > 444 H* Hemoglobin A1c See comment H Serum Osmolality 365 H* Lactic Acid Calcium Phosphorus Magnesium Total Bilirubin AST ALT Alkaline Phosphatase Total Creatine Kinase Troponin I C-Reactive Protein C-React Prot High Sens Total Protein Albumin Globulin Albumin/Globulin Ratio Triglycerides Cholesterol LDL Cholesterol LDL Cholesterol Direct HDL Cholesterol TSH Free T4 Urine Color Urine Appearance Urine pH Ur Specific [place] Urine Protein Urine Ketones Urine Blood Urine Nitrate Urine Bilirubin Urine Urobilinogen Ur Leukocyte Esterase Urine WBC (Auto) Urine RBC (Auto) Ur Squamous Epith Cells Urine Bacteria Urine Glucose Urine Ascorbic Acid 11/22/18 11/22/18 11/22/18 01:15 01:46 02:46 WBC RBC Hgb Hct MCV MCH MCHC RDW Plt Count MPV Neut % (Auto) Lymph % (Auto) [place] % (Auto) Eos % (Auto) Baso % (Auto) Absolute Neuts (auto) Absolute Lymphs (auto) Absolute Monos (auto) Absolute Eos (auto) Absolute Basos (auto) Absolute Nucleated RBC Nucleated RBC % ESR INR (Anticoag Therapy) APTT Patient Temperature ABG pH ABG pH (Temp Correct) ABG pCO2 ABG pCO2 (Temp Corrct ABG pO2 ABG pO2 (Temp Correct ABG HCO3 ABG O2 Saturation ABG Base Excess Respiration Rate O2 Delivery Device Ventilator Type Vent Mode FiO2 Inspiratory Time PEEP Pressure Support Pressure Control EPAP IPAP BiPAP Sodium Potassium Chloride Carbon Dioxide Anion Gap BUN Creatinine Est GFR ( Amer) Est GFR (Non-Af Amer) BUN/Creatinine Ratio Glucose POC Glucose (mg/dL) 373 H 373 H Hemoglobin A1c Serum Osmolality Lactic Acid 1.4 Calcium Phosphorus Magnesium Total Bilirubin AST ALT Alkaline Phosphatase Total Creatine Kinase Troponin I C-Reactive Protein C-React Prot High Sens Total Protein Albumin Globulin Albumin/Globulin Ratio Triglycerides Cholesterol LDL Cholesterol LDL Cholesterol Direct HDL Cholesterol TSH Free T4 Urine Color Urine Appearance Urine pH Ur Specific [place] Urine Protein Urine Ketones Urine Blood Urine Nitrate Urine Bilirubin Urine Urobilinogen Ur Leukocyte Esterase Urine WBC (Auto) Urine RBC (Auto) Ur Squamous Epith Cells Urine Bacteria Urine Glucose Urine Ascorbic Acid 11/22/18 11/22/18 11/22/18 04:00 04:30 04:30 WBC 19.8 H RBC 5.22 Hgb 15.5 Hct 47 MCV 90 MCH 30 MCHC 33 RDW 14 Plt Count 172 MPV 11.4 H Neut % (Auto) 69.1 Lymph % (Auto) 26.0 [place] % (Auto) 4.6 Eos % (Auto) 0 Baso % (Auto) 0.3 Absolute Neuts (auto) 13.7 H Absolute Lymphs (auto) 5.1 H Absolute Monos (auto) 0.9 H Absolute Eos (auto) 0 Absolute Basos (auto) 0.1 Absolute Nucleated RBC 0.1 Nucleated RBC % 0.2 ESR 29 INR (Anticoag Therapy) APTT Patient Temperature ABG pH ABG pH (Temp Correct) ABG pCO2 ABG pCO2 (Temp Corrct ABG pO2 ABG pO2 (Temp Correct ABG HCO3 ABG O2 Saturation ABG Base Excess Respiration Rate O2 Delivery Device Ventilator Type Vent Mode FiO2 Inspiratory Time PEEP Pressure Support Pressure Control EPAP IPAP BiPAP Sodium 158 H* Potassium TNP Chloride 119 H Carbon Dioxide 31 Anion Gap 8 BUN 45 H Creatinine 1.21 H Est GFR ( Amer) 56.3 Est GFR (Non-Af Amer) 46.5 BUN/Creatinine Ratio 37.2 H Glucose 273 H POC Glucose (mg/dL) 442 H* Hemoglobin A1c Serum Osmolality Lactic Acid Calcium 9.3 Phosphorus Magnesium Total Bilirubin AST ALT Alkaline Phosphatase Total Creatine Kinase Troponin I 0.16 H* C-Reactive Protein C-React Prot High Sens Total Protein Albumin Globulin Albumin/Globulin Ratio Triglycerides Cholesterol LDL Cholesterol LDL Cholesterol Direct HDL Cholesterol TSH Free T4 Urine Color Urine Appearance Urine pH Ur Specific [place] Urine Protein Urine Ketones Urine Blood Urine Nitrate Urine Bilirubin Urine Urobilinogen Ur Leukocyte Esterase Urine WBC (Auto) Urine RBC (Auto) Ur Squamous Epith Cells Urine Bacteria Urine Glucose Urine Ascorbic Acid 11/22/18 11/22/18 11/22/18 05:00 05:08 05:11 WBC RBC Hgb Hct MCV MCH MCHC RDW Plt Count MPV Neut % (Auto) Lymph % (Auto) [place] % (Auto) Eos % (Auto) Baso % (Auto) Absolute Neuts (auto) Absolute Lymphs (auto) Absolute Monos (auto) Absolute Eos (auto) Absolute Basos (auto) Absolute Nucleated RBC Nucleated RBC % ESR INR (Anticoag Therapy) APTT Patient Temperature ABG pH ABG pH (Temp Correct) ABG pCO2 ABG pCO2 (Temp Corrct ABG pO2 ABG pO2 (Temp Correct ABG HCO3 ABG O2 Saturation ABG Base Excess Respiration Rate O2 Delivery Device Ventilator Type Vent Mode FiO2 Inspiratory Time PEEP Pressure Support Pressure Control EPAP IPAP BiPAP Sodium 159 H* Potassium TNP Chloride 120 H Carbon Dioxide 31 Anion Gap 8 BUN 43 H Creatinine 1.17 H Est GFR ( Amer) 58.5 Est GFR (Non-Af Amer) 48.4 BUN/Creatinine Ratio 36.8 H Glucose 214 H POC Glucose (mg/dL) 181 H Hemoglobin A1c Serum Osmolality Lactic Acid Calcium 9.2 Phosphorus Magnesium Total Bilirubin 0.30 AST TNP ALT 29 Alkaline Phosphatase 147 H Total Creatine Kinase Troponin I C-Reactive Protein C-React Prot High Sens Total Protein 6.0 L Albumin 3.1 L Globulin 2.9 Albumin/Globulin Ratio 1.1 Triglycerides 2620 Cholesterol 575 LDL Cholesterol LDL Cholesterol Direct 68 HDL Cholesterol 17.2 TSH Free T4 Urine Color Straw Urine Appearance Turbid Urine pH 5.0 Ur Specific [place] 1.035 H Urine Protein 2+(100 mg/dl) A Urine Ketones 1+ A Urine Blood Negative Urine Nitrate Negative Urine Bilirubin Negative Urine Urobilinogen Negative Ur Leukocyte Esterase Trace A Urine WBC (Auto) Trace(0-5/hpf) Urine RBC (Auto) 2+(6-10/hpf) A Ur Squamous Epith Cells Present A Urine Bacteria Absent Urine Glucose 3+(>=500 mg/dl) A Urine Ascorbic Acid * A 11/22/18 11/22/18 11/22/18 06:01 07:18 07:20 WBC RBC Hgb Hct MCV MCH MCHC RDW Plt Count MPV Neut % (Auto) Lymph % (Auto) [place] % (Auto) Eos % (Auto) Baso % (Auto) Absolute Neuts (auto) Absolute Lymphs (auto) Absolute Monos (auto) Absolute Eos (auto) Absolute Basos (auto) Absolute Nucleated RBC Nucleated RBC % ESR INR (Anticoag Therapy) APTT Patient Temperature ABG pH ABG pH (Temp Correct) ABG pCO2 ABG pCO2 (Temp Corrct ABG pO2 ABG pO2 (Temp Correct ABG HCO3 ABG O2 Saturation ABG Base Excess Respiration Rate O2 Delivery Device Ventilator Type Vent Mode FiO2 Inspiratory Time PEEP Pressure Support Pressure Control EPAP IPAP BiPAP Sodium 160 H* Potassium TNP Chloride 121 H Carbon Dioxide 30 Anion Gap 9 BUN 40 H Creatinine 1.13 H Est GFR ( Amer) 60.9 Est GFR (Non-Af Amer) 50.4 BUN/Creatinine Ratio 35.4 H Glucose 111 H POC Glucose (mg/dL) 168 H 123 H Hemoglobin A1c Serum Osmolality Lactic Acid Calcium 9.4 Phosphorus Magnesium Total Bilirubin AST ALT Alkaline Phosphatase Total Creatine Kinase Troponin I C-Reactive Protein C-React Prot High Sens Total Protein Albumin Globulin Albumin/Globulin Ratio Triglycerides Cholesterol LDL Cholesterol LDL Cholesterol Direct HDL Cholesterol TSH Free T4 Urine Color Urine Appearance Urine pH Ur Specific [place] Urine Protein Urine Ketones Urine Blood Urine Nitrate Urine Bilirubin Urine Urobilinogen Ur Leukocyte Esterase Urine WBC (Auto) Urine RBC (Auto) Ur Squamous Epith Cells Urine Bacteria Urine Glucose Urine Ascorbic Acid 11/22/18 11/22/18 11/22/18 08:12 08:23 09:29 WBC RBC Hgb Hct MCV MCH MCHC RDW Plt Count MPV Neut % (Auto) Lymph % (Auto) [place] % (Auto) Eos % (Auto) Baso % (Auto) Absolute Neuts (auto) Absolute Lymphs (auto) Absolute Monos (auto) Absolute Eos (auto) Absolute Basos (auto) Absolute Nucleated RBC Nucleated RBC % ESR INR (Anticoag Therapy) APTT Patient Temperature ABG pH ABG pH (Temp Correct) ABG pCO2 ABG pCO2 (Temp Corrct ABG pO2 ABG pO2 (Temp Correct ABG HCO3 ABG O2 Saturation ABG Base Excess Respiration Rate O2 Delivery Device Ventilator Type Vent Mode FiO2 Inspiratory Time PEEP Pressure Support Pressure Control EPAP IPAP BiPAP Sodium Potassium 4.0 Chloride Carbon Dioxide Anion Gap BUN Creatinine Est GFR ( Amer) Est GFR (Non-Af Amer) BUN/Creatinine Ratio Glucose POC Glucose (mg/dL) 88 212 H Hemoglobin A1c Serum Osmolality Lactic Acid Calcium Phosphorus Magnesium Total Bilirubin AST ALT Alkaline Phosphatase Total Creatine Kinase Troponin I C-Reactive Protein C-React Prot High Sens Total Protein Albumin Globulin Albumin/Globulin Ratio Triglycerides Cholesterol LDL Cholesterol LDL Cholesterol Direct HDL Cholesterol TSH Free T4 Urine Color Urine Appearance Urine pH Ur Specific [place] Urine Protein Urine Ketones Urine Blood Urine Nitrate Urine Bilirubin Urine Urobilinogen Ur Leukocyte Esterase Urine WBC (Auto) Urine RBC (Auto) Ur Squamous Epith Cells Urine Bacteria Urine Glucose Urine Ascorbic Acid 11/22/18 11/22/18 11/22/18 10:08 11:05 11:10 WBC RBC Hgb Hct MCV MCH MCHC RDW Plt Count MPV Neut % (Auto) Lymph % (Auto) [place] % (Auto) Eos % (Auto) Baso % (Auto) Absolute Neuts (auto) Absolute Lymphs (auto) Absolute Monos (auto) Absolute Eos (auto) Absolute Basos (auto) Absolute Nucleated RBC Nucleated RBC % ESR INR (Anticoag Therapy) APTT Patient Temperature ABG pH ABG pH (Temp Correct) ABG pCO2 ABG pCO2 (Temp Corrct ABG pO2 ABG pO2 (Temp Correct ABG HCO3 ABG O2 Saturation ABG Base Excess Respiration Rate O2 Delivery Device Ventilator Type Vent Mode FiO2 Inspiratory Time PEEP Pressure Support Pressure Control EPAP IPAP BiPAP Sodium 160 H* Potassium Chloride Carbon Dioxide Anion Gap BUN Creatinine Est GFR ( Amer) Est GFR (Non-Af Amer) BUN/Creatinine Ratio Glucose POC Glucose (mg/dL) 163 H 211 H Hemoglobin A1c Serum Osmolality Lactic Acid Calcium Phosphorus Magnesium Total Bilirubin AST ALT Alkaline Phosphatase Total Creatine Kinase Troponin I C-Reactive Protein 11.35 H C-React Prot High Sens Total Protein Albumin Globulin Albumin/Globulin Ratio Triglycerides Cholesterol LDL Cholesterol LDL Cholesterol Direct HDL Cholesterol TSH Free T4 Urine Color Urine Appearance Urine pH Ur Specific [place] Urine Protein Urine Ketones Urine Blood Urine Nitrate Urine Bilirubin Urine Urobilinogen Ur Leukocyte Esterase Urine WBC (Auto) Urine RBC (Auto) Ur Squamous Epith Cells Urine Bacteria Urine Glucose Urine Ascorbic Acid 11/22/18 11/22/18 11/22/18 12:40 13:49 14:01 WBC RBC Hgb Hct MCV MCH MCHC RDW Plt Count MPV Neut % (Auto) Lymph % (Auto) [place] % (Auto) Eos % (Auto) Baso % (Auto) Absolute Neuts (auto) Absolute Lymphs (auto) Absolute Monos (auto) Absolute Eos (auto) Absolute Basos (auto) Absolute Nucleated RBC Nucleated RBC % ESR INR (Anticoag Therapy) APTT Patient Temperature ABG pH ABG pH (Temp Correct) ABG pCO2 ABG pCO2 (Temp Corrct ABG pO2 ABG pO2 (Temp Correct ABG HCO3 ABG O2 Saturation ABG Base Excess Respiration Rate O2 Delivery Device Ventilator Type Vent Mode FiO2 Inspiratory Time PEEP Pressure Support Pressure Control EPAP IPAP BiPAP Sodium 159 H* Potassium Chloride Carbon Dioxide Anion Gap BUN Creatinine Est GFR ( Amer) Est GFR (Non-Af Amer) BUN/Creatinine Ratio Glucose POC Glucose (mg/dL) 238 H 265 H Hemoglobin A1c Serum Osmolality Lactic Acid Calcium Phosphorus Magnesium Total Bilirubin AST ALT Alkaline Phosphatase Total Creatine Kinase Troponin I C-Reactive Protein C-React Prot High Sens 13.33 H Total Protein Albumin Globulin Albumin/Globulin Ratio Triglycerides Cholesterol LDL Cholesterol LDL Cholesterol Direct HDL Cholesterol TSH Free T4 Urine Color Urine Appearance Urine pH Ur Specific [place] Urine Protein Urine Ketones Urine Blood Urine Nitrate Urine Bilirubin Urine Urobilinogen Ur Leukocyte Esterase Urine WBC (Auto) Urine RBC (Auto) Ur Squamous Epith Cells Urine Bacteria Urine Glucose Urine Ascorbic Acid 11/22/18 15:00 WBC RBC Hgb Hct MCV MCH MCHC RDW Plt Count MPV Neut % (Auto) Lymph % (Auto) [place] % (Auto) Eos % (Auto) Baso % (Auto) Absolute Neuts (auto) Absolute Lymphs (auto) Absolute Monos (auto) Absolute Eos (auto) Absolute Basos (auto) Absolute Nucleated RBC Nucleated RBC % ESR INR (Anticoag Therapy) APTT Patient Temperature ABG pH ABG pH (Temp Correct) ABG pCO2 ABG pCO2 (Temp Corrct ABG pO2 ABG pO2 (Temp Correct ABG HCO3 ABG O2 Saturation ABG Base Excess Respiration Rate O2 Delivery Device Ventilator Type Vent Mode FiO2 Inspiratory Time PEEP Pressure Support Pressure Control EPAP IPAP BiPAP Sodium Potassium Chloride Carbon Dioxide Anion Gap BUN Creatinine Est GFR ( Amer) Est GFR (Non-Af Amer) BUN/Creatinine Ratio Glucose POC Glucose (mg/dL) 260 H Hemoglobin A1c Serum Osmolality Lactic Acid Calcium Phosphorus Magnesium Total Bilirubin AST ALT Alkaline Phosphatase Total Creatine Kinase Troponin I C-Reactive Protein C-React Prot High Sens Total Protein Albumin Globulin Albumin/Globulin Ratio Triglycerides Cholesterol LDL Cholesterol LDL Cholesterol Direct HDL Cholesterol TSH Free T4 Urine Color Urine Appearance Urine pH Ur Specific [place] Urine Protein Urine Ketones Urine Blood Urine Nitrate Urine Bilirubin Urine Urobilinogen Ur Leukocyte Esterase Urine WBC (Auto) Urine RBC (Auto) Ur Squamous Epith Cells Urine Bacteria Urine Glucose Urine Ascorbic Acid RADIOGRAPHS- personally reviewed Patient Name: SHIRA NUNO Medical Record#: [id number] Ordering Physician: Riaz Davenport MD Acct.#: [id number] : 1965 Age: 52 Sex: F Location: [facility] Exam Date: 11/22/18 1042 ADM Status: ADM IN Order Information: CHEST AP OR PORT Accession Number: [id number] CPT: 70943 Indication: NG tube placement. Single frontal view of the chest performed at 1237 hours was reviewed. Comparison is made with previous exam dated November 22, 2018. Cardiomegaly is noted. Right basilar atelectasis is noted. Central catheter is in place with the tip in the superior vena cava. IMPRESSION: CARDIOMEGALY WITH RIGHT BASE ATELECTASIS. CENTRAL LINE APPEARS IN PLACE. NG tube in appropriate location. <Electronically signed by Marie Alexander MD in OV> 11/22/18 1247 Dictated By: Marie Alexander MD Dictated Date/Time: 11/22/18 1247 Transcribed Date/Time: 11/22/18 1246 Copy to: CC:Riaz Davenport MD; Susana Randle DO; Alisson Mack MD; No Primary Care Phys, NOPCP Imaging - [facility] Imaging - [facility] Imaging - [facility] [address] [address] [place] [address] [place] [address] ph ([phone]) ph ([phone]) ph ([phone]) This report is only to be considered final once signed by the Provider(s) as displayed in the "<Electronically Signed by >" field (s). Absence of a signature indicates the report is in a draft status and still needs to be finalized. In the event this document was created by someone other than the signing Provider, the individual initiating the document will be listed in the "Entered by:" or "Dictated by:" hinton. 1 of 1 52 yo F with AMS, severe hypernatremia Plan: # AMS # leukocytosis - suspect due to acute hypernatremia - CT brain negative - Blood cultures x 2 now - venous blood gas now to r/o hypercapnea - if no improvement as the Sodium improves, will pursue MRI head, LP, and/or evaluation of intrathecal pump. Will need a secure airway prior to these interventions - rule out drug toxicity vs withdrawal # Hypernatremia suspect hypovolemic hypernatremia Total water deficit of 3.6L Will attempt to correct from 160 to 154 in the next 24 hours starting 2p /08 -D5W 100cc/h with FWF via NGT 100 cc/2 hours # acute hypoxemic respiratory failure # BREE # concern for acute pulmonary edema - BIPAP 30/06 to target SPO2 >/= 92% - TTE today - Patient is protecting her airway and seems to be responding to BIPAP. However , if hypercapnea, would intubate # Chronic pain # Chronic intrathecal pain med pum - unsure if pain pump is working - will need pump eval prior to discharge # Hyperglycemia - likely DKA as her presenting AG was 21. Now AG resolved - Will give 10 units lantus due to ongoing D5w - c/w insulin gtt, currently running at 7 units - will administer 5 units regular x 1 if FSBG >200 now - pending HGAIC in AM # CKD Cr 1.13 Prognosis guarded Full code CRitical care time: 80 minutes Critical care issues: acute encephalopathy, acute hypoxemic respiratory failure , acute BIPAP
[2018-11-22] MEDS ORDERED: Insulin GLARGINE(*) 1 UNITS UNIT SUBCUT SCH (18:00)
[2018-11-22] MEDS ORDERED: Acetaminophen ADULT LIQ* 650 MG/20.3 ML UDC PO PRN (18:03)
[2018-11-22] MEDS ORDERED: Acetaminophen SUPP* 80 MG PR ONE (18:03)
[2018-11-22] MEDS ORDERED: Succinylcholine* 20 MG/ML 10 ML VIAL ONE (19:11)
[2018-11-22] MEDS ORDERED: Propofol* 100 ML ONE (19:21)
[2018-11-22] MEDS ORDERED: Etomidate* 2 MG/ML 20 ML VIAL (40 MG) ONE (19:27)
[2018-11-22] MEDS ORDERED: Propofol* 100 ML IV ONE (19:43)
[2018-11-22] MEDS ORDERED: Famotidine IV * 20 MG in NS 0.9% 100 ML* 100 ML IVPB SCH (21:00)
[2018-11-22] MEDS: Chlorhexidine MOUTHWASH 0.12%* 15 ML UDC TOPICAL SCH (23:19)
[2018-11-22] MEDS: Famotidine IV* 10 MG/ML 2 ML (20 mg) IV SLOW PU SCH (23:20)
[2018-11-23] MEDS: Propofol* 100 ML IV ONE ×3 (01:52→06:17)
[2018-11-23] MEDS: Chlorhexidine MOUTHWASH 0.12%* 15 ML UDC TOPICAL SCH ×4 (02:08→12:50)
[2018-11-23] MEDS: Morphine 4 MG/ML VIAL (1 ml) 4 MG/ML VIAL IV PRN (02:31)
[2018-11-23] MEDS: Vancomycin(*) 1,000 MG in NS 0.9% 250 ML* 250 ML IVPB SCH ×2 (02:33→15:07)
--- NOTE | 2018-11-23 03:34 | OP ---
Operative Report - Blank - Operative Report Date of Operation: 11/22/18 Note: Emergent Endotracheal Intubation Date: 11/22/18 Time: 1999 Indication: Respiratory Distress The patient was placed in an appropriate position. Sedation was obtained using Etomidate 20mg and succinylcholine 100mg. The patient was easily ventilated using an ambu bag. The GLIDESCOPE with 4.0 blade was used and inserted into the oropharynx at which time there was a Grade 1 view of the vocal cords. A 7.5- barbadian endotracheal tube was inserted and visualized going through the vocal cords. The stylette was removed. Colorimetric change was visualized on the CO2 meter. Breath sounds were heard in both lung hinton equally. The endotracheal tube was placed at 24 cm, measured at the teeth. I personally performed the entire procedure. A chest x-ray suggestive of appropriate ETT placement and no notable complications The patient tolerated the procedure well and there were no complications.
[2018-11-23] MEDS ORDERED: Propofol* 100 ML ONE ×2 (04:09→06:14)
[2018-11-23 04:36] LABS: BUN/Creatinine Ratio 31.9 (8-20); Calcium 8.1 mg/dL (8.6-10.3); EGFR African American 75.4 (>60); EGFR Non-African American 62.3 (>60); Phosphorus 2.3 mg/dL (2.5-5.0)
[2018-11-23 04:38] LABS: Hematocrit 42 % (35-47); Hemoglobin 13.7 g/dl (12.0-16.0); Mean Corpuscular HGB Conc 33 g/dl (31-36); Mean Corpuscular Hemoglobin 30 pg (27-31); Mean Corpuscular Volume 92 fL (80-97); Red Blood Count 4.58 10^6/ul (4.00-5.40); Red Cell Distribution Width 14 % (10.5-15); White Blood Count 9.4 10^3/ul (3.5-10.8)
[2018-11-23 04:39] LABS: ABS Neutrophils 4.6 10^3/ul (1.5-7.7)
[2018-11-23] MEDS: ZOSYN 3.375 GM Q8H per EXTENDED INFUSION IVPB SCH ×6 (04:46→19:50)
[2018-11-23 04:52] LABS: ABS Basophils 0 10^3/ul (0-0.2); ABS Eosinophils 0 10^3/ul (0-0.6); ABS Lymphocytes 4.2 10^3/ul (1.0-4.8); ABS Monocytes 0.6 10^3/ul (0-0.8); ABS Nucleated RBC 0 10^3/ul; Eosinophil % 0 %; Lymphocyte % 44.7 %; Nucleated Red Blood Cells % 0.3; Platelet Count Platelets clumped. 10^3/ul (150-450)
[2018-11-23 05:02] LABS: Potassium 3.6 mmol/L (3.5-5.0)
[2018-11-23] MEDS: Heparin VIAL(*) 5000 UNITS/ML VIAL (FIVE THOUSAND) SUBCUT SCH ×3 (06:18→21:32)
[2018-11-23] MEDS: Propofol* 100 ML IV SCH ×2 (08:15→10:56)
[2018-11-23] MEDS: Famotidine IV* 10 MG/ML 2 ML (20 mg) IV SLOW PU SCH (08:17)
[2018-11-23] MEDS: Insulin IVPB 100 units/100 ml 100 UNITS/100 ML UNIT IVPB SCH ×2 (08:52→15:08)
[2018-11-23] MEDS ORDERED: D5W 1000 ML BAG* 1,000 ML IV SCH (09:46)
[2018-11-23] MEDS ORDERED: fentaNYL* 50 MCG/ML 2 ML VIAL (100 MCG VIAL) ONE (10:28)
[2018-11-23] MEDS: fentaNYL* 50 MCG/ML 2 ML VIAL (100 MCG VIAL) IV SLOW PU PRN ×2 (10:31→21:32)
[2018-11-23] MEDS ORDERED: oxyCODONE ORAL.SOLN* 5 MG/5 ML UDC PO SCH (11:00)
[2018-11-23] MEDS ORDERED: Vancomycin Trough Check NOTE FOLLOW UP ONE (13:30)
--- NOTE | 2018-11-23 15:50 | PN ---
Date of Service: 11/23/18 Critical Care Services: 52 F with hx/o chronic pain on intrathecal infusion transferred to ICU care on 11/22/18 due to progressive AMS in the setting of hypernatremia. She was BIBA for suspected DKA 1 day ago from [facility]. Her glucose at [place] was around 1000. She has been non-compliant with her HTN and DM medications. According to chart review, her found her on the floor 1 day ago In the ED, noted to be febrile 100.1F Patient goes to pain clinic at [facility]. 11/22: Patient was somnolent all day yest. She had episodes of intermittent hypoxemia with increased WOB. patient intubated overnight for airway protection 11/23: Patient extubated. States pain is optimally controlled. Denies new pain or concerns Vital Signs: Temp Pulse Resp BP SpO2 FiO2 99.1 F 101 24 128/67 90 40 11/23/18 14:15 11/23/18 15:01 11/23/18 15:01 11/23/18 15:00 11/23/18 15:01 11/23 11:06 Physical Exam: General: NAD; Somnolent but easily arousable HEENT: Atraumatic, PERRLA, neck supple, no thyromegaly Lungs: air entry bilaterally, no rales/wheezes Cardiovascular: Normal S1, Normal S2, tachycardia Abdomen: Soft, No tenderness, Other - palpated intrathecal pump in the lateral LLQ of abdomen. Obese abdomen Extremities: No cyanosis, chronic skin changes with open wounds dime sized ( posterior RLE) Neurological: nonfocal, somnolent but easily arousable Fluid Balance (Past 24 Hours): I= O= Net Intake & Output 11/21/18 11/22/18 11/23/18 11/24/18 06:59 06:59 06:59 07:59 Intake Total 1613.5 5612.8 2209.4 Output Total 1190 1310 540 Balance 423.5 4302.8 1669.4 Weight 100 lb 14.4 oz 233 lb 3.985 oz Intake: IV Fluids 1550 2630.6 572 D5W 100 2570 532 NS 950 60.6 40 Vanco 500 IVPB 70 Vanco 70 Medicated IV 63.5 1027.2 364.4 Insulin 35.8 99.0 45.4 Zosyn 27.7 550.2 116 propofol 378 203 Tube Feeding Flush Amount 1885 1273 Output: Urine 120 Germain 1190 1310 420 ADLs: Meal Record Start: 11/22/18 02: 04 Freq: 09,13,18 Status: Active Protocol: Created 11/22/18 02:04 System (Rec: 11/22/18 02:04 System ICU-M33) Document 11/22/18 09:00 [id number] (Rec: 11/22/18 09:32 [id number] ICU-M33) Document 11/22/18 13:00 [id number] (Rec: 11/22/18 14:04 [id number] ICU-M33) Document 11/22/18 17:37 [id number] (Rec: 11/22/18 17:37 OUM7042 ICU-M33) Document 11/23/18 09:00 YDT1569 (Rec: 11/23/18 09:01 YCG9370 ICU-C15) Document 11/23/18 13:08 IGU2514 (Rec: 11/23/18 13:08 [id number] ICU-M33) Intake and Output Start: 11/21/18 21: 23 Freq: Status: Active Protocol: Created 11/21/18 21:23 System (Rec: 11/21/18 21:23 System [id number]) Document 11/21/18 22:42 [id number] (Rec: 11/21/18 22:42 [id number] ED-C19) Intake and Output Start: 11/22/18 02: 04 Freq: Q1HR Status: Active Protocol: Created 11/22/18 02:04 System (Rec: 11/22/18 02:04 System ICU-M33) Document 11/22/18 05:00 [id number] (Rec: 11/22/18 05:13 UJC6876 ICU-L03) Document 11/22/18 07:16 NEZ6508 (Rec: 11/22/18 07:16 YVK3910 ICU-M33) Document 11/22/18 08:21 [id number] (Rec: 11/22/18 08:21 DKC2875 ICU-M33) Document 11/22/18 09:32 CMV7566 (Rec: 11/22/18 09:32 LIE0815 ICU-M33) Document 11/22/18 10:11 QMK5713 (Rec: 11/22/18 10:11 PRC2609 ICU-M33) Document 11/22/18 11:05 XVP8972 (Rec: 11/22/18 11:05 XGE9412 ICU-M33) Document 11/22/18 12:00 VXY8985 (Rec: 11/22/18 12:03 OBI9292 ICU-M33) Document 11/22/18 14:04 BST6706 (Rec: 11/22/18 14:04 TZX9375 ICU-M33) Document 11/22/18 15:02 LDL4052 (Rec: 11/22/18 15:02 RJC8121 ICU-M33) Document 11/22/18 16:00 SIT5733 (Rec: 11/22/18 16:05 FLF9129 ICU-M33) Document 11/22/18 17:37 PXT1855 (Rec: 11/22/18 17:37 SJH6546 ICU-M33) Document 11/22/18 18:33 OPI2405 (Rec: 11/22/18 18:33 YXB1495 ICU-M33) Document 11/22/18 19:00 JGP5233 (Rec: 11/22/18 20:22 GHT2451 ICU-M33) Document 11/22/18 20:00 HMK4897 (Rec: 11/22/18 20:22 XMJ1054 ICU-M33) Document 11/22/18 21:00 BMP3015 (Rec: 11/22/18 21:41 JJE6492 ICU-C15) Document 11/22/18 22:00 JIB0612 (Rec: 11/22/18 22:04 CEL2485 ICU-M33) Document 11/22/18 23:00 FKA7684 (Rec: 11/22/18 23:27 ZXT6203 ICU-M33) Document 11/23/18 00:14 WUY2187 (Rec: 11/23/18 00:15 YKF0591 ICU-M33) Document 11/23/18 02:12 LMT2685 (Rec: 11/23/18 02:12 YWG2701 ICU-C16) Document 11/23/18 04:00 TAZ5119 (Rec: 11/23/18 04:06 HTP3273 ICU-M33) Document 11/23/18 05:06 PPQ1231 (Rec: 11/23/18 05:06 CWI5949 ICU-M33) Document 11/23/18 06:08 LTS3790 (Rec: 11/23/18 06:09 TLY5902 ICU-M33) Document 11/23/18 07:00 QPD2995 (Rec: 11/23/18 07:44 UXH4899 ICU-L03) Document 11/23/18 08:00 CAR7635 (Rec: 11/23/18 09:00 DIB4953 ICU-C15) Document 11/23/18 09:00 PNB7607 (Rec: 11/23/18 09:00 WEX1548 ICU-C15) Document 11/23/18 10:00 ZLG9325 (Rec: 11/23/18 11:02 NMP2531 ICU-C15) Document 11/23/18 11:00 WRM7931 (Rec: 11/23/18 11:05 QNQ2934 ICU-C15) Document 11/23/18 12:00 STJ9526 (Rec: 11/23/18 12:43 MFS7067 ICU-C15) Document 11/23/18 13:10 KPB6545 (Rec: 11/23/18 13:10 KFB1987 ICU-M33) Document 11/23/18 14:00 FSD9589 (Rec: 11/23/18 14:53 MVO5335 ICU-C15) Document 11/23/18 15:00 MAK8209 (Rec: 11/23/18 15:11 WMI8734 ICU-M33) Labs: Laboratory Results - last 24 hr 11/21/18 11/22/18 11/22/18 22:04 04:30 13:49 WBC RBC Hgb Hct MCV MCH MCHC RDW Plt Count MPV Neut % (Auto) Lymph % (Auto) [place] % (Auto) Eos % (Auto) Baso % (Auto) Absolute Neuts (auto) Absolute Lymphs (auto) Absolute Monos (auto) Absolute Eos (auto) Absolute Basos (auto) Absolute Nucleated RBC Nucleated RBC % Clumped Platelets Hem Pathologist Commnt ABG pH ABG pCO2 ABG pO2 ABG HCO3 ABG O2 Saturation ABG Base Excess VBG pH VBG pCO2 VBG pO2 VBG HCO3 VBG O2 Saturation VBG Base Excess Sodium 159 H* Potassium Chloride Carbon Dioxide Anion Gap BUN Creatinine Est GFR ( Amer) Est GFR (Non-Af Amer) BUN/Creatinine Ratio Glucose POC Glucose (mg/dL) Hemoglobin A1c >18.0 H Calcium Phosphorus Magnesium C-React Prot High Sens 13.33 H Vancomycin Trough 11/22/18 11/22/18 11/22/18 16:27 17:18 17:18 WBC RBC Hgb Hct MCV MCH MCHC RDW Plt Count MPV Neut % (Auto) Lymph % (Auto) [place] % (Auto) Eos % (Auto) Baso % (Auto) Absolute Neuts (auto) Absolute Lymphs (auto) Absolute Monos (auto) Absolute Eos (auto) Absolute Basos (auto) Absolute Nucleated RBC Nucleated RBC % Clumped Platelets Hem Pathologist Commnt ABG pH ABG pCO2 ABG pO2 ABG HCO3 ABG O2 Saturation ABG Base Excess VBG pH 7.38 VBG pCO2 63 H VBG pO2 < 38.0 VBG HCO3 31.6 H VBG O2 Saturation 64.1 L VBG Base Excess 9.7 H Sodium 158 H* Potassium Chloride Carbon Dioxide Anion Gap BUN Creatinine Est GFR ( Amer) Est GFR (Non-Af Amer) BUN/Creatinine Ratio Glucose POC Glucose (mg/dL) 266 H Hemoglobin A1c Calcium Phosphorus Magnesium C-React Prot High Sens Vancomycin Trough 11/22/18 11/22/18 11/22/18 17:35 18:32 19:19 WBC RBC Hgb Hct MCV MCH MCHC RDW Plt Count MPV Neut % (Auto) Lymph % (Auto) [place] % (Auto) Eos % (Auto) Baso % (Auto) Absolute Neuts (auto) Absolute Lymphs (auto) Absolute Monos (auto) Absolute Eos (auto) Absolute Basos (auto) Absolute Nucleated RBC Nucleated RBC % Clumped Platelets Hem Pathologist Commnt ABG pH ABG pCO2 ABG pO2 ABG HCO3 ABG O2 Saturation ABG Base Excess VBG pH VBG pCO2 VBG pO2 VBG HCO3 VBG O2 Saturation VBG Base Excess Sodium Potassium Chloride Carbon Dioxide Anion Gap BUN Creatinine Est GFR ( Amer) Est GFR (Non-Af Amer) BUN/Creatinine Ratio Glucose POC Glucose (mg/dL) 218 H 188 H 153 H Hemoglobin A1c Calcium Phosphorus Magnesium C-React Prot High Sens Vancomycin Trough 11/22/18 11/22/18 11/22/18 20:05 20:20 20:21 WBC RBC Hgb Hct MCV MCH MCHC RDW Plt Count MPV Neut % (Auto) Lymph % (Auto) [place] % (Auto) Eos % (Auto) Baso % (Auto) Absolute Neuts (auto) Absolute Lymphs (auto) Absolute Monos (auto) Absolute Eos (auto) Absolute Basos (auto) Absolute Nucleated RBC Nucleated RBC % Clumped Platelets Hem Pathologist Commnt ABG pH 7.41 ABG pCO2 55 H ABG pO2 218 H ABG HCO3 31.5 H ABG O2 Saturation 99.9 H ABG Base Excess 8.4 H VBG pH VBG pCO2 VBG pO2 VBG HCO3 VBG O2 Saturation VBG Base Excess Sodium 158 H* Potassium Chloride Carbon Dioxide Anion Gap BUN Creatinine Est GFR ( Amer) Est GFR (Non-Af Amer) BUN/Creatinine Ratio Glucose POC Glucose (mg/dL) 139 H Hemoglobin A1c Calcium Phosphorus Magnesium C-React Prot High Sens Vancomycin Trough 11/22/18 11/22/18 11/22/18 21:24 21:59 22:59 WBC RBC Hgb Hct MCV MCH MCHC RDW Plt Count MPV Neut % (Auto) Lymph % (Auto) [place] % (Auto) Eos % (Auto) Baso % (Auto) Absolute Neuts (auto) Absolute Lymphs (auto) Absolute Monos (auto) Absolute Eos (auto) Absolute Basos (auto) Absolute Nucleated RBC Nucleated RBC % Clumped Platelets Hem Pathologist Commnt ABG pH ABG pCO2 ABG pO2 ABG HCO3 ABG O2 Saturation ABG Base Excess VBG pH VBG pCO2 VBG pO2 VBG HCO3 VBG O2 Saturation VBG Base Excess Sodium Potassium Chloride Carbon Dioxide Anion Gap BUN Creatinine Est GFR ( Amer) Est GFR (Non-Af Amer) BUN/Creatinine Ratio Glucose POC Glucose (mg/dL) 127 H 114 H 90 Hemoglobin A1c Calcium Phosphorus Magnesium C-React Prot High Sens Vancomycin Trough 11/22/18 11/22/18 11/22/18 23:05 23:18 23:31 WBC RBC Hgb Hct MCV MCH MCHC RDW Plt Count MPV Neut % (Auto) Lymph % (Auto) [place] % (Auto) Eos % (Auto) Baso % (Auto) Absolute Neuts (auto) Absolute Lymphs (auto) Absolute Monos (auto) Absolute Eos (auto) Absolute Basos (auto) Absolute Nucleated RBC Nucleated RBC % Clumped Platelets Hem Pathologist Commnt ABG pH ABG pCO2 ABG pO2 ABG HCO3 ABG O2 Saturation ABG Base Excess VBG pH VBG pCO2 VBG pO2 VBG HCO3 VBG O2 Saturation VBG Base Excess Sodium 158 H* Potassium Chloride Carbon Dioxide Anion Gap BUN Creatinine Est GFR ( Amer) Est GFR (Non-Af Amer) BUN/Creatinine Ratio Glucose POC Glucose (mg/dL) 98 107 H Hemoglobin A1c Calcium Phosphorus Magnesium C-React Prot High Sens Vancomycin Trough 11/23/18 11/23/18 11/23/18 00:14 01:28 02:16 WBC RBC Hgb Hct MCV MCH MCHC RDW Plt Count MPV Neut % (Auto) Lymph % (Auto) [place]cl[place] % (Auto) Eos % (Auto) Baso % (Auto) Absolute Neuts (auto) Absolute Lymphs (auto) Absolute Monos (auto) Absolute Eos (auto) Absolute Basos (auto) Absolute Nucleated RBC Nucleated RBC % Clumped Platelets Hem Pathologist Commnt ABG pH ABG pCO2 ABG pO2 ABG HCO3 ABG O2 Saturation ABG Base Excess VBG pH VBG pCO2 VBG pO2 VBG HCO3 VBG O2 Saturation VBG Base Excess Sodium Potassium Chloride Carbon Dioxide Anion Gap BUN Creatinine Est GFR ( Amer) Est GFR (Non-Af Amer) BUN/Creatinine Ratio Glucose POC Glucose (mg/dL) 117 H 160 H 181 H Hemoglobin A1c Calcium Phosphorus Magnesium C-React Prot High Sens Vancomycin Trough 11/23/18 11/23/18 11/23/18 03:09 04:08 04:09 WBC RBC Hgb Hct MCV MCH MCHC RDW Plt Count MPV Neut % (Auto) Lymph % (Auto) [place]cl[place] % (Auto) Eos % (Auto) Baso % (Auto) Absolute Neuts (auto) Absolute Lymphs (auto) Absolute Monos (auto) Absolute Eos (auto) Absolute Basos (auto) Absolute Nucleated RBC Nucleated RBC % Clumped Platelets Hem Pathologist Commnt ABG pH ABG pCO2 ABG pO2 ABG HCO3 ABG O2 Saturation ABG Base Excess VBG pH VBG pCO2 VBG pO2 VBG HCO3 VBG O2 Saturation VBG Base Excess Sodium 152 H Potassium 3.6 Chloride 116 H Carbon Dioxide 31 Anion Gap 5 BUN 30 H Creatinine 0.94 Est GFR ( Amer) 75.4 Est GFR (Non-Af Amer) 62.3 BUN/Creatinine Ratio 31.9 H Glucose 200 H POC Glucose (mg/dL) 191 H 199 H Hemoglobin A1c Calcium 8.1 L Phosphorus 2.3 L Magnesium 2.0 C-React Prot High Sens Vancomycin Trough 11/23/18 11/23/18 11/23/18 04:09 05:06 05:57 WBC 9.4 RBC 4.58 Hgb 13.7 Hct 42 MCV 92 MCH 30 MCHC 33 RDW 14 Plt Count Platelets clumped. H MPV Not Reportable Neut % (Auto) 48.8 Lymph % (Auto) 44.7 Mclennan % (Auto) 6.2 Eos % (Auto) 0 Baso % (Auto) 0.3 Absolute Neuts (auto) 4.6 Absolute Lymphs (auto) 4.2 Absolute Monos (auto) 0.6 Absolute Eos (auto) 0 Absolute Basos (auto) 0 Absolute Nucleated RBC 0 Nucleated RBC % 0.3 Clumped Platelets Present Hem Pathologist Commnt ABG pH ABG pCO2 ABG pO2 ABG HCO3 ABG O2 Saturation ABG Base Excess VBG pH VBG pCO2 VBG pO2 VBG HCO3 VBG O2 Saturation VBG Base Excess Sodium Potassium Chloride Carbon Dioxide Anion Gap BUN Creatinine Est GFR ( Amer) Est GFR (Non-Af Amer) BUN/Creatinine Ratio Glucose POC Glucose (mg/dL) 255 H 188 H Hemoglobin A1c Calcium Phosphorus Magnesium C-React Prot High Sens Vancomycin Trough 11/23/18 11/23/18 11/23/18 07:31 08:30 08:31 WBC RBC Hgb Hct MCV MCH MCHC RDW Plt Count MPV Neut % (Auto) Lymph % (Auto) Mclennan % (Auto) Eos % (Auto) Baso % (Auto) Absolute Neuts (auto) Absolute Lymphs (auto) Absolute Monos (auto) Absolute Eos (auto) Absolute Basos (auto) Absolute Nucleated RBC Nucleated RBC % Clumped Platelets Hem Pathologist Commnt ABG pH ABG pCO2 ABG pO2 ABG HCO3 ABG O2 Saturation ABG Base Excess VBG pH VBG pCO2 VBG pO2 VBG HCO3 VBG O2 Saturation VBG Base Excess Sodium 151 H Potassium Chloride Carbon Dioxide Anion Gap BUN Creatinine Est GFR ( Amer) Est GFR (Non-Af Amer) BUN/Creatinine Ratio Glucose POC Glucose (mg/dL) 208 H 190 H Hemoglobin A1c Calcium Phosphorus Magnesium C-React Prot High Sens Vancomycin Trough 11/23/18 11/23/18 12:10 13:35 WBC RBC Hgb Hct MCV MCH MCHC RDW Plt Count MPV Neut % (Auto) Lymph % (Auto) Mclennan % (Auto) Eos % (Auto) Baso % (Auto) Absolute Neuts (auto) Absolute Lymphs (auto) Absolute Monos (auto) Absolute Eos (auto) Absolute Basos (auto) Absolute Nucleated RBC Nucleated RBC % Clumped Platelets Hem Pathologist Commnt ABG pH ABG pCO2 ABG pO2 ABG HCO3 ABG O2 Saturation ABG Base Excess VBG pH VBG pCO2 VBG pO2 VBG HCO3 VBG O2 Saturation VBG Base Excess Sodium 150 H Potassium Chloride Carbon Dioxide Anion Gap BUN Creatinine Est GFR ( Amer) Est GFR (Non-Af Amer) BUN/Creatinine Ratio Glucose POC Glucose (mg/dL) Hemoglobin A1c Calcium Phosphorus Magnesium C-React Prot High Sens Vancomycin Trough 8.4 Studies: Patient Name: SHIRA NUNO Medical Record#: [id number] Ordering Physician: Riaz Davenport MD Acct.#: [id number] : 1965 Age: 52 Sex: F Location: [facility] Exam Date: 11/23/18 0700 ADM Status: ADM IN Order Information: CHEST AP OR PORT Accession Number: [id number] CPT: 71452 Indication: Acute respiratory distress. COPD. Cardiovascular disease. Comparison: November 22, 2018 Technique: Supine AP 0600 hours Report: Tip of endotracheal tube 4 cm above the Nohemi. Nasogastric tube passes to the stomach and outside the [id number] caudally. Tip of RIGHT central venous catheter at the superior vena cava. Suggestion of a temperature probe in the esophagus. Linear atelectasis at the RIGHT mid to lower lung zone and at the LEFT lung base. The lungs and pleural spaces are otherwise clear. The heart, pulmonary vasculature, and mediastinal contours are unremarkable. IMPRESSION: #. Tubes and lines as described. #. Interval worsening of atelectasis. R1F Preliminary Imaging Read R1F <Electronically signed by Deep Gillis MD in OV> 11/23/18826 Dictated By: Deep Gillis MD Dictated Date/Time: 11/23/18826 Transcribed Date/Time: 11/23/18822 Copy to: CC:Riaz Davenport MD; Susana Randle DO; No Primary Care Phys,NOPCP ; Dany Torres MD Imaging - [facility] Imaging - [facility] Imaging - [facility] [address] [place] [id number] [id number] [place] [id number] ph ([phone]) ph ([phone]) ph ([phone]) This report is only to be considered final once signed by the Provider(s) as displayed in the "<Electronically Signed by >" field (s). Absence of a signature indicates the report is in a draft status and still needs to be finalized. In the event this document was created by someone other than the signing Provider, the individual initiating the document will be listed in the "Entered by:" or "Dictated by:" hinton. 1 of 1 Nutrition: Carbohydrate consistent low sodium diet Impression: 52 yo F monitored in the ICU for AMS, severe hypernatremia, requiring intubation for airway protection # AMS # leukocytosis # Hypernatremia # acute hypoxemic respiratory failure # BREE # concern for acute pulmonary edema # Chronic pain # Chronic intrathecal pain med pum # Hyperglycemia # CKD Plan: # AMS Patient mental status is improving to her baseline Will need to update the home meds and resume them accordingly - ? if due to acute hypernatremia vs infection - CT brain negative - if no improvement as the Sodium improves, will pursue MRI head, LP, and/or evaluation of intrathecal pump. - rule out drug toxicity vs withdrawal # leukocytosis resolved 19-->9.4 -on broad spectrum abx- zosyn and vancomycin D#2 - will de-escalate abx in 72 hours - Blood cultures NTD 11/22 # Hypernatremia suspect hypovolemic hypernatremia >160 upon presentation -has appropriately improved to 150 in the last 24 hours with D5W and FWF -encourage oral fluid intake - follow up Na+ q 8h -Total water deficit of 3.8L - Will attempt to correct from 150 to 142 in the next 24 hours starting 12p - will try with oral hydration as suspect high risk of fluid overload with IV fluids # acute hypoxemic respiratory failure # BREE # concern for acute pulmonary edema - decompensated on 11/22 requiring intubation and mechanical ventilation - extubated 11/22 - Patient's CPAP at bedtime - awaiting results of TTE 11/22 # Chronic pain # Chronic intrathecal pain med pum - unsure if pain pump is working - will need pump eval prior to discharge - c/w prn oxycodone and tylenol # Hyperglycemia # uncontrolled DM HGAIC >18 - likely DKA as her presenting AG was 21. Now AG resolved - Will give 10 units lantus nightly - c/w insulin gtt, currently running at 7 units - will administer 5 units regular x 1 if FSBG >200 now - pending HGAIC in AM # LILY Cr 1.13-->resolved to 0.94 Prognosis guarded Full code Critical care issues: acute encephalopathy, acute hypoxemic respiratory failure , acute ventilator dependance, extubation <24 hours Dispo: Monitor in the ICU Critical Care Time: 50 minutes
[2018-11-23] MEDS ORDERED: Dextrose 50% Syringe 50 ML* 25 GM/50 ML SYRINGE IV PUSH PRN ×2 (16:13→21:28)
[2018-11-23] MEDS: Vancomycin(*) 1,250 MG in NS 0.9% 250 ML* 250 ML IVPB SCH (16:38)
[2018-11-23] MEDS: Insulin LISPRO* 1 UNITS UNIT SUBCUT SCH ×2 (16:52→21:40)
[2018-11-23] MEDS ORDERED: Insulin GLARGINE(*) 1 UNITS UNIT SUBCUT SCH (17:00)
[2018-11-23] MEDS ORDERED: Insulin LISPRO* 1 UNITS UNIT SUBCUT STA (21:28)
--- NOTE | 2018-11-23 21:30 | PN ---
Hospitalist Progress Note Date of Service: 11/23/18 Gave one time dose of 18 units of Insulin lispro. Reviewed FS and per RN, pt had a few servings of pastries that may have increased FS. Asked RN to recheck FS in 2 hours after short acting insulin given.
[2018-11-23] MEDS ORDERED: Insulin LISPRO* 1 UNITS UNIT SUBCUT ONE (21:39)
[2018-11-23] MEDS ORDERED: Polyethylene Glycol 3350* 17 GM PACKET PO PRN (23:59)
[2018-11-24] MEDS: Vancomycin(*) 1,250 MG in NS 0.9% 250 ML* 250 ML IVPB SCH ×3 (00:06→17:40)
[2018-11-24] MEDS: ZOSYN 3.375 GM Q8H per EXTENDED INFUSION IVPB SCH ×6 (04:47→20:57)
[2018-11-24] MEDS: fentaNYL* 50 MCG/ML 2 ML VIAL (100 MCG VIAL) IV SLOW PU PRN (04:53)
[2018-11-24] MEDS: Heparin VIAL(*) 5000 UNITS/ML VIAL (FIVE THOUSAND) SUBCUT SCH ×3 (04:54→21:02)
[2018-11-24 05:30] LABS: Hematocrit 39 % (35-47); Hemoglobin 12.8 g/dl (12.0-16.0); Mean Corpuscular HGB Conc 33 g/dl (31-36); Mean Corpuscular Hemoglobin 30 pg (27-31); Mean Corpuscular Volume 91 fL (80-97); Red Blood Count 4.31 10^6/ul (4.00-5.40); Red Cell Distribution Width 14 % (10.5-15)
[2018-11-24 05:52] LABS: BUN/Creatinine Ratio 26.6 (8-20); EGFR African American 117.5 (>60); EGFR Non-African American 97.1 (>60); Magnesium 1.9 mg/dL (1.9-2.7); Phosphorus 2.3 mg/dL (2.5-5.0); Potassium 3.8 mmol/L (3.5-5.0)
[2018-11-24 06:00] LABS: ABS Basophils 0.1 10^3/ul (0-0.2); ABS Eosinophils 0 10^3/ul (0-0.6); ABS Lymphocytes 3.1 10^3/ul (1.0-4.8); ABS Monocytes 0.4 10^3/ul (0-0.8); ABS Neutrophils 4.4 10^3/ul (1.5-7.7); ABS Nucleated RBC 0 10^3/ul; Eosinophil % 0.5 %; Lymphocyte % 38.7 %; Mean Platelet Volume 11.4 fL (7.4-10.4); Nucleated Red Blood Cells % 0.2; Platelet Count 72 10^3/ul (150-450)
[2018-11-24] MEDS: Insulin LISPRO* 1 UNITS UNIT SUBCUT SCH ×4 (07:54→21:02)
--- NOTE | 2018-11-24 11:37 | PN ---
Date of Service: 11/24/18 - TRANSFER NOTE Critical Care Services: 52 F with hx/o chronic pain on intrathecal infusion transferred to ICU care on 11/22/18 due to progressive AMS in the setting of hypernatremia. She was BIBA for suspected DKA 1 day ago from [facility] with FSBG 1000 and AG 21. At that time her Na+ >160 11/22: Patient was somnolent all day. She had episodes of intermittent hypoxemia with increased WOB. Patient intubated late in the evening for airway protection 11/23: Patient extubated. States pain is optimally controlled. Denies new pain or concerns 11/24: Patient awake and alert. Complains of back pain. +BM, cosby in place. No fever, no chest pain, no SOB Vital Signs: Temp Pulse Resp BP SpO2 FiO2 98.3 F 104 13 126/64 94 40 11/24/18 07:44 11/24/18 10:46 11/24/18 10:53 11/24/18 10:46 11/24/18 10:46 11/23 11:06 Physical Exam: General: NAD; HEENT: Atraumatic, PERRLA, neck supple, no thyromegaly Lungs: air entry bilaterally, no rales/wheezes Cardiovascular: Normal S1, Normal S2, tachycardia Abdomen: Soft, No tenderness, Other - palpated intrathecal pump in the lateral LLQ of abdomen. Obese abdomen Extremities: No cyanosis, chronic skin changes with open wounds dime sized ( posterior RLE) Neurological: nonfocal, AAOX3 Fluid Balance (Past 24 Hours): I= O= Net Intake & Output 11/22/18 11/23/18 11/24/18 11/25/18 05:59 05:59 06:59 06:59 Intake Total 750 Output Total 325 Balance 425 Weight Intake: IV Fluids D5W NS Vanco IVPB Vanco abx Medicated IV Insulin Zosyn propofol Oral 750 Tube Feeding Flush Amount Output: Urine 50 Cosby 275 Other: Estimated Stool Amount Medium ADLs: Meal Record Start: 11/22/18 02: 04 Freq: ,,18 Status: Active Protocol: Created 11/22/18 02:04 System (Rec: 11/22/18 02:04 System ICU-M33) Document 11/22/18 09:00 [id number] (Rec: 11/22/18 09:32 [id number] ICU-M33) Document 11/22/18 13:00 FEQ4803 (Rec: 11/22/18 14:04 ODS2095 ICU-M33) Document 11/22/18 17:37 QAI2768 (Rec: 11/22/18 17:37 DBW6857 ICU-M33) Document 11/23/18 09:00 MUR9495 (Rec: 11/23/18 09:01 NKM4101 ICU-C15) Document 11/23/18 13:08 MWH6864 (Rec: 11/23/18 13:08 GVE8595 ICU-M33) Document 11/24/18 09:00 [id number] (Rec: 11/24/18 10:54 JTU2666 ICU-C15) Intake and Output Start: 11/21/18 21: 23 Freq: Status: Active Protocol: Created 11/21/18 21:23 System (Rec: 11/21/18 21:23 System [id number]) Document 11/21/18 22:42 [id number] (Rec: 11/21/18 22:42 AVQ4980 ED-C19) Intake and Output Start: 11/22/18 02: 04 Freq: Q1HR Status: Active Protocol: Created 11/22/18 02:04 System (Rec: 11/22/18 02:04 System ICU-M33) Document 11/22/18 05:00 AWE4741 (Rec: 11/22/18 05:13 DEP9599 ICU-L03) Document 11/22/18 07:16 TWL3858 (Rec: 11/22/18 07:16 CCC8037 ICU-M33) Document 11/22/18 08:21 BNS1518 (Rec: 11/22/18 08:21 VUC5219 ICU-M33) Document 11/22/18 09:32 LGX6196 (Rec: 11/22/18 09:32 GHS4615 ICU-M33) Document 11/22/18 10:11 MXU1583 (Rec: 11/22/18 10:11 YAK0311 ICU-M33) Document 11/22/18 11:05 MHD7873 (Rec: 11/22/18 11:05 LST1952 ICU-M33) Document 11/22/18 12:00 HSX2320 (Rec: 11/22/18 12:03 NGC5144 ICU-M33) Document 11/22/18 14:04 FWR8181 (Rec: 11/22/18 14:04 EYR9531 ICU-M33) Document 11/22/18 15:02 JIA8175 (Rec: 11/22/18 15:02 BQM5826 ICU-M33) Document 11/22/18 16:00 FIL0269 (Rec: 11/22/18 16:05 BZM6627 ICU-M33) Document 11/22/18 17:37 ZJK4306 (Rec: 11/22/18 17:37 NWH1777 ICU-M33) Document 11/22/18 18:33 UNP7061 (Rec: 11/22/18 18:33 QTS3912 ICU-M33) Document 11/22/18 19:00 XWH9466 (Rec: 11/22/18 20:22 ACD8362 ICU-M33) Document 11/22/18 20:00 HTU8456 (Rec: 11/22/18 20:22 UKI4323 ICU-M33) Document 11/22/18 21:00 JVQ0403 (Rec: 11/22/18 21:41 UAI7954 ICU-C15) Document 11/22/18 22:00 LEV8867 (Rec: 11/22/18 22:04 LDF8355 ICU-M33) Document 11/22/18 23:00 EFU6254 (Rec: 11/22/18 23:27 LUJ0807 ICU-M33) Document 11/23/18 00:14 QMV8549 (Rec: 11/23/18 00:15 MDS1953 ICU-M33) Document 11/23/18 02:12 YMM6794 (Rec: 11/23/18 02:12 RJN0776 ICU-C16) Document 11/23/18 04:00 CIA1526 (Rec: 11/23/18 04:06 MDX6212 ICU-M33) Document 11/23/18 05:06 ITW6170 (Rec: 11/23/18 05:06 DGV0770 ICU-M33) Document 11/23/18 06:08 UVN5491 (Rec: 11/23/18 06:09 PNG4077 ICU-M33) Document 11/23/18 07:00 QWZ3065 (Rec: 11/23/18 07:44 DAQ5912 ICU-L03) Document 11/23/18 08:00 FLN9534 (Rec: 11/23/18 09:00 COA8899 ICU-C15) Document 11/23/18 09:00 RSV9078 (Rec: 11/23/18 09:00 TAR0586 ICU-C15) Document 11/23/18 10:00 RJB0034 (Rec: 11/23/18 11:02 DXH1829 ICU-C15) Document 11/23/18 11:00 ISO4147 (Rec: 11/23/18 11:05 ORB9976 ICU-C15) Document 11/23/18 12:00 ALT3912 (Rec: 11/23/18 12:43 IKT0303 ICU-C15) Document 11/23/18 13:10 KPI7127 (Rec: 11/23/18 13:10 BNS3174 ICU-M33) Document 11/23/18 14:00 YRS9711 (Rec: 11/23/18 14:53 QPR4533 ICU-C15) Document 11/23/18 15:00 RYC4029 (Rec: 11/23/18 15:11 ZIW3330 ICU-M33) Document 11/23/18 16:00 UZC0255 (Rec: 11/23/18 17:11 UZS0588 ICU-C15) Document 11/23/18 19:00 ZWX1698 (Rec: 11/23/18 19:52 LIQ8355 ICU-M33) Document 11/23/18 19:36 OYN2125 (Rec: 11/23/18 19:36 IWP5790 ICU-L03) Document 11/23/18 19:51 KEK3662 (Rec: 11/23/18 19:51 KRS8747 ICU-M33) Document 11/23/18 20:48 NER4181 (Rec: 11/23/18 20:50 PQW7668 ICU-M33) Document 11/23/18 21:55 FVX3391 (Rec: 11/23/18 21:55 IEM2688 ICU-M33) Document 11/23/18 22:49 XAX0564 (Rec: 11/23/18 22:51 ULG6017 ICU-M33) Document 11/24/18 00:00 RRZ5295 (Rec: 11/24/18 00:09 PXI7653 ICU-M33) Document 11/24/18 01:00 UUO9240 (Rec: 11/24/18 01:28 PVD3901 ICU-M33) Document 11/24/18 03:07 FPU1344 (Rec: 11/24/18 03:07 BOZ0497 ICU-M33) Document 11/24/18 04:00 JMO4087 (Rec: 11/24/18 05:12 VOQ3921 ICU-M33) Document 11/24/18 05:00 VQQ9734 (Rec: 11/24/18 05:12 IBD1508 ICU-M33) Document 11/24/18 06:00 RKW6784 (Rec: 11/24/18 06:03 QIZ4117 ICU-M33) Document 11/24/18 06:06 LTL5721 (Rec: 11/24/18 06:06 VIH5077 ICU-C15) Document 11/24/18 07:00 AVN9371 (Rec: 11/24/18 08:07 BLB4101 ICU-C15) Document 11/24/18 08:00 KWO0769 (Rec: 11/24/18 08:48 XTB1948 ICU-C15) Document 11/24/18 09:00 QRM6123 (Rec: 11/24/18 10:53 YOX2668 ICU-C15) Document 11/24/18 10:00 UAV6496 (Rec: 11/24/18 10:53 NGY6145 ICU-C15) Document 11/24/18 10:53 YNK9416 (Rec: 11/24/18 10:54 ISJ6390 ICU-C15) Labs: Laboratory Results - last 24 hr 11/21/18 11/23/18 11/23/18 22:04 09:15 10:21 WBC RBC Hgb Hct MCV MCH MCHC RDW Plt Count MPV Neut % (Auto) Lymph % (Auto) [place] % (Auto) Eos % (Auto) Baso % (Auto) Absolute Neuts (auto) Absolute Lymphs (auto) Absolute Monos (auto) Absolute Eos (auto) Absolute Basos (auto) Absolute Nucleated RBC Nucleated RBC % Sodium Potassium Chloride Carbon Dioxide Anion Gap BUN Creatinine Est GFR ( Amer) Est GFR (Non-Af Amer) BUN/Creatinine Ratio Glucose POC Glucose (mg/dL) 192 H 174 H Glucose Meter Confirm Hemoglobin A1c >18.0 H Calcium Phosphorus Magnesium Vancomycin Trough 11/23/18 11/23/18 11/23/18 11:28 12:09 12:10 WBC RBC Hgb Hct MCV MCH MCHC RDW Plt Count MPV Neut % (Auto) Lymph % (Auto) [place] % (Auto) Eos % (Auto) Baso % (Auto) Absolute Neuts (auto) Absolute Lymphs (auto) Absolute Monos (auto) Absolute Eos (auto) Absolute Basos (auto) Absolute Nucleated RBC Nucleated RBC % Sodium 150 H Potassium Chloride Carbon Dioxide Anion Gap BUN Creatinine Est GFR ( Amer) Est GFR (Non-Af Amer) BUN/Creatinine Ratio Glucose POC Glucose (mg/dL) 145 H 139 H Glucose Meter Confirm Hemoglobin A1c Calcium Phosphorus Magnesium Vancomycin Trough 11/23/18 11/23/18 11/23/18 13:07 13:35 14:03 WBC RBC Hgb Hct MCV MCH MCHC RDW Plt Count MPV Neut % (Auto) Lymph % (Auto) [place] % (Auto) Eos % (Auto) Baso % (Auto) Absolute Neuts (auto) Absolute Lymphs (auto) Absolute Monos (auto) Absolute Eos (auto) Absolute Basos (auto) Absolute Nucleated RBC Nucleated RBC % Sodium Potassium Chloride Carbon Dioxide Anion Gap BUN Creatinine Est GFR ( Amer) Est GFR (Non-Af Amer) BUN/Creatinine Ratio Glucose POC Glucose (mg/dL) 140 H 133 H Glucose Meter Confirm Hemoglobin A1c Calcium Phosphorus Magnesium Vancomycin Trough 8.4 11/23/18 11/23/18 11/23/18 16:25 16:30 20:48 WBC RBC Hgb Hct MCV MCH MCHC RDW Plt Count MPV Neut % (Auto) Lymph % (Auto) [place] % (Auto) Eos % (Auto) Baso % (Auto) Absolute Neuts (auto) Absolute Lymphs (auto) Absolute Monos (auto) Absolute Eos (auto) Absolute Basos (auto) Absolute Nucleated RBC Nucleated RBC % Sodium 149 H Potassium Chloride Carbon Dioxide Anion Gap BUN Creatinine Est GFR ( Amer) Est GFR (Non-Af Amer) BUN/Creatinine Ratio Glucose POC Glucose (mg/dL) 233 H 405 H* Glucose Meter Confirm Hemoglobin A1c Calcium Phosphorus Magnesium Vancomycin Trough 11/23/18 11/23/18 11/24/18 20:55 23:42 01:35 WBC RBC Hgb Hct MCV MCH MCHC RDW Plt Count MPV Neut % (Auto) Lymph % (Auto) [place] % (Auto) Eos % (Auto) Baso % (Auto) Absolute Neuts (auto) Absolute Lymphs (auto) Absolute Monos (auto) Absolute Eos (auto) Absolute Basos (auto) Absolute Nucleated RBC Nucleated RBC % Sodium 146 H Potassium Chloride Carbon Dioxide Anion Gap BUN Creatinine Est GFR ( Amer) Est GFR (Non-Af Amer) BUN/Creatinine Ratio Glucose POC Glucose (mg/dL) 231 H Glucose Meter Confirm 454 H Hemoglobin A1c Calcium Phosphorus Magnesium Vancomycin Trough 11/24/18 11/24/18 11/24/18 05:10 05:10 07:34 WBC 8.0 RBC 4.31 Hgb 12.8 Hct 39 MCV 91 MCH 30 MCHC 33 RDW 14 Plt Count 72 L D MPV 11.4 H Neut % (Auto) 55.1 Lymph % (Auto) 38.7 [place] % (Auto) 4.7 Eos % (Auto) 0.5 Baso % (Auto) 1.0 Absolute Neuts (auto) 4.4 Absolute Lymphs (auto) 3.1 Absolute Monos (auto) 0.4 Absolute Eos (auto) 0 Absolute Basos (auto) 0.1 Absolute Nucleated RBC 0 Nucleated RBC % 0.2 Sodium 146 H Potassium 3.8 Chloride 110 Carbon Dioxide 34 H Anion Gap 2 BUN 17 Creatinine 0.64 Est GFR ( Amer) 117.5 Est GFR (Non-Af Amer) 97.1 BUN/Creatinine Ratio 26.6 H Glucose 240 H POC Glucose (mg/dL) 181 H Glucose Meter Confirm Hemoglobin A1c Calcium 8.0 L Phosphorus 2.3 L Magnesium 1.9 Vancomycin Trough 11/24/18 09:40 WBC RBC Hgb Hct MCV MCH MCHC RDW Plt Count MPV Neut % (Auto) Lymph % (Auto) [place] % (Auto) Eos % (Auto) Baso % (Auto) Absolute Neuts (auto) Absolute Lymphs (auto) Absolute Monos (auto) Absolute Eos (auto) Absolute Basos (auto) Absolute Nucleated RBC Nucleated RBC % Sodium 143 Potassium Chloride Carbon Dioxide Anion Gap BUN Creatinine Est GFR ( Amer) Est GFR (Non-Af Amer) BUN/Creatinine Ratio Glucose POC Glucose (mg/dL) Glucose Meter Confirm Hemoglobin A1c Calcium Phosphorus Magnesium Vancomycin Trough Studies: Patient Name: SHIRA NUNO Medical Record#: [id number] Ordering Physician: Riaz Davenport MD Acct.#: [id number] : 1965 Age: 52 Sex: F Location: INTENSIVE CARE UNIT Exam Date: 11/23/18699 ADM Status: ADM IN Order Information: CHEST AP OR PORT Accession Number: [id number] CPT: 04862 Indication: Acute respiratory distress. COPD. Cardiovascular disease. Comparison: November 22, 2018 Technique: Supine AP 0600 hours Report: Tip of endotracheal tube 4 cm above the Nohemi. Nasogastric tube passes to the stomach and outside the fmger-la-jajf caudally. Tip of RIGHT central venous catheter at the superior vena cava. Suggestion of a temperature probe in the esophagus. Linear atelectasis at the RIGHT mid to lower lung zone and at the LEFT lung base. The lungs and pleural spaces are otherwise clear. The heart, pulmonary vasculature, and mediastinal contours are unremarkable. IMPRESSION: #. Tubes and lines as described. #. Interval worsening of atelectasis. R1F Preliminary Imaging Read R1F <Electronically signed by Deep Gillis MD in OV> 11/23/18826 Dictated By: Deep Gillis MD Dictated Date/Time: 11/23/18826 Transcribed Date/Time: 11/23/18822 Copy to: CC:Riaz Davenport MD; Susana Randle DO; No Primary Care Phys,NOPCP ; Dany Torres MD Imaging - [facility] Imaging - [facility] Imaging - [facility] [address] [address] ph [phone]) ph ([phone]) ph ([phone]) This report is only to be considered final once signed by the Provider(s) as displayed in the "<Electronically Signed by >" field (s). Absence of a signature indicates the report is in a draft status and still needs to be finalized. In the event this document was created by someone other than the signing Provider, the individual initiating the document will be listed in the "Entered by:" or "Dictated by:" hinton. 1 of 1 Nutrition: Carbohydrate consistent diet Impression: Impression: 52 yo F monitored in the ICU for AMS, severe hypernatremia, requiring intubation for airway protection # AMS # leukocytosis # Hypernatremia # acute hypoxemic respiratory failure # BREE # concern for acute pulmonary edema # Chronic pain # Chronic intrathecal pain med pum # Uncontrolled DM with Hyperglycemia # LILY Plan: # AMS Patient mental status is improving to her baseline Updated home home meds and resume them accordingly - Suspect AMS was due to acute hypernatremia vs infection - CT brain negative # leukocytosis resolved 19-->9.4-->8.0 - on broad spectrum abx- zosyn and vancomycin D#2 - will de-escalate abx in 72 hours - Blood cultures NTD 11/22 # Hypernatremia suspect hypovolemic hypernatremia with total water deficit of 3.8L >160 upon presentation - had appropriately improved to 150 in the last 24 hours with D5W and FWF - latest Na+ 143 which has improved with patient oral intake after extubation - encourage oral fluid intake # acute hypoxemic respiratory failure # BREE # concern for acute pulmonary edema - decompensated on 11/22 requiring intubation and mechanical ventilation - extubated 11/22 - Patient's CPAP at bedtime - awaiting results of TTE 11/22 # Chronic pain # Chronic intrathecal pain med pump # Insomnia # mood disorder - unsure if pain pump is working - will need pump eval prior to discharge - c/w prn oxycodone and tylenol - restarted home meds: bupropion, trazadone, topamax at lower dose. Consider increasing as indicated # HTN BP optimized restarted home atenolol and trazadone at lower dose due to hemodynamics # Hyperglycemia # uncontrolled DM HGAIC >18 - likely DKA as her presenting AG was 21. Now AG resolved - Will increase lantus to 15 units nightly. Continue with SSI # LILY Cr 1.13-->resolved to 0.94 # Chronic venous ulcer with possible cellulitis - continue with abx for now, de-escalate per micro - wound care consult placed # Thrombocytopenia -? if HIT vs. previously erroneous elevated due to dehydration - will send for HIT panel - Consider holding heparin if platelets continue to drop further Prognosis guarded Full code Critical care issues: acute encephalopathy, acute hypoxemic respiratory failure , acute ventilator dependance, extubation <24 hours Dispo: Stable to transfer 4S/Tele Critical Care Time: 50 minutes
[2018-11-24] MEDS: Insulin GLARGINE(*) 1 UNITS UNIT SUBCUT SCH (11:58)
--- NOTE | 2018-11-24 12:05 | ECHO ---
Patient: SHIRA NUNO [facility] Rec#: [id number] : 1965 Date: 11/22/2018 Age: 52y Height: 165 cm / 65.0 in Weight: 91 kg / 200.6 lbs Sex: F BSA: 1.98 Room#: [facility] Admit Date#: 11/22/2018 Type: Inpatient Referring: Susana Randle Reading: Alonso Bleu MD [place] Operator: Rohini [facility] Tran[facility]horacic Echocardiogram Indication: Shortness of breath BP: 129/94 HR: 139 Rhythm: Tachycardia Findings History: HTN, chronic wounds, soft systolic murmur. Technical Comments: The study is technically limited due to patient body habitus. Left Ventricle: The left ventricular chamber size is decreased. Mild concentric left ventricular hypertrophy is observed. The left ventricle appears hyperdynamic.There is mild turbulence in the LVOT and mild increase in LVOT velocities c/w the hyperdynamic state; no significant obstruction. The estimated ejection fraction is greater than 65%. There is septal flattening of the interventricular septum consistent with right ventricular volume or pressure overload. Abnormal left ventricular diastolic function is observed. Abnormal left ventricular diastolic filling is observed, consistent with impaired relaxation. Left Atrium: The left atrial chamber size is normal. Right Ventricle: Moderator Band present. The right ventricle is moderately dilated. The right ventricle wall thickness is normal. The right ventricular global systolic function is mildly reduced. Right Atrium: The right atrium is moderately dilated. Aortic Valve: The aortic valve is trileaflet. There is no evidence of aortic valve thickening. There is a trace of aortic regurgitation. There is no evidence of aortic stenosis. Mitral Valve: The mitral valve leaflets are mildly thickened. There is a trace of mitral regurgitation. There is no evidence of mitral stenosis. Tricuspid Valve: The tricuspid valve structure is not well visualized. There is trace to mild tricuspid regurgitation. Unable to estimate the right ventricular systolic pressure. There is no tricuspid stenosis. Pulmonic Valve: The pulmonic valve structure is not well visualized. There is a trace pulmonic regurgitation. Pericardium: There is no significant pericardial effusion. A pericardial fat pad is visualized. Aorta: There is mild dilatation of the ascending aorta. There is no dilatation of the aortic arch. The aortic root is normal in size. Pulmonary Artery: The main pulmonary artery appears normal. Venous: The inferior vena cava appears normal in size. There is a greater than 50% respiratory change in the inferior vena cava dimension. Contrast: Definity was used to optimize study. 3 mL of diluted Definity were utilized. Intravenous contrast was used to enhance endocardial border definition. Summary: There was not any prior study for comparison. Conclusions The study is technically limited due to patient body habitus. The left ventricle appears hyperdynamic. The estimated ejection fraction is greater than 65%. There is mild turbulence in the LVOT and mild increase in LVOT velocities c/w the hyperdynamic state; no significant obstruction There is septal flattening of the interventricular septum consistent with right ventricular volume or pressure overload. Abnormal left ventricular diastolic filling is observed, consistent with impaired relaxation. The right ventricle is moderately dilated. The right ventricular global systolic function is mildly reduced. The right atrium is moderately dilated. There is a trace of mitral regurgitation. There is trace to mild tricuspid regurgitation. Unable to estimate the right ventricular systolic pressure. Measurements Name Value Normal Range RVIDd (AP) 2D 3.3 cm (0.9 - 2.6) RVDdMajor (2D) 5.4 cm (2.2 - 4.4) RAd ISD 4CH 5.8 cm (3.4 - 4.9) RA (A4C)W 4.7 cm (2.9 - 4.6) IVSd (2D) 1.1 cm (0.6 - 1) LVPWd (2D) 1.1 cm (0.6 - 1) LVIDd (2D) 3.55 cm (3.6 - 5.4) LVIDs (2D) 2.6 cm - LV FS (2D) 26 % (25 - 45) Aortic Annulus 2.2 cm (1.4 - 2.6) Ao root diameter (2D) 3.1 cm (2.1 - 3.5) Ascending Ao 3.5 cm (2.1 - 3.4) Aortic arch 2.6 cm (1.8 - 3.4) LA dimension (AP) 2D 3.3 cm (2.3 - 3.8) LAd ISD 4CH 5 cm (2.9 - 5.3) LA ISD 4CH W 4.5 cm (2.5 - 4.5) Name Value Normal Range LA ESV BP (A/L) index 24 ml/m2 - Name Value Normal Range MV E-wave Vmax 0.6 m/sec - MV deceleration time 183 msec - MV A-wave Vmax 1 m/sec - MV E:A ratio 0.6 ratio - LV septal e' Vmax 0.1 m/sec - LV lateral e' Vmax 0.13 m/sec - LV E:e' septal ratio 6 ratio - LV E:e' lateral ratio 4.6 ratio - Name Value Normal Range AV Vmax 1.7 m/sec - AV VTI 33 cm - AV peak gradient 12 mmHg - AV mean gradient 8 mmHg - LVOT Vmax 1.4 m/sec - LVOT VTI 22 cm - LVOT peak gradient 8 mmHg - LVOT mean gradient 3 mmHg - ASHLEY Vmax 0.7 m/sec - Name Value Normal Range IVC diameter 1.6 cm - Name Value Normal Range PV Vmax 1.4 m/sec - PV peak gradient 8 mmHg -
[2018-11-24] MEDS: DICLOFENAC 1% TOPICAL SCH ×2 (14:42→21:03)
[2018-11-24] MEDS: oxyCODONE ORAL.SOLN* 5 MG/5 ML UDC PO PRN (14:42)
[2018-11-24] MEDS ORDERED: Vancomycin Trough Check NOTE FOLLOW UP ONE (16:00)
[2018-11-24] MEDS: Topiramate TAB(*) 25 MG PO SCH (21:01)
[2018-11-24] MEDS: traZODone TAB* 50 MG TAB PO SCH (21:02)
[2018-11-24] MEDS: Amitriptyline TAB* 25 MG PO SCH (21:02)
[2018-11-25] MEDS: Vancomycin(*) 1,250 MG in NS 0.9% 250 ML* 250 ML IVPB SCH ×2 (00:17→08:57)
[2018-11-25] MEDS: ZOSYN 3.375 GM Q8H per EXTENDED INFUSION IVPB SCH ×4 (04:42→12:55)
[2018-11-25] MEDS: Heparin VIAL(*) 5000 UNITS/ML VIAL (FIVE THOUSAND) SUBCUT SCH (05:26)
[2018-11-25] MEDS: Atenolol TAB* 25 MG PO SCH (08:50)
[2018-11-25] MEDS: Topiramate TAB(*) 25 MG PO SCH ×2 (08:51→21:24)
[2018-11-25] MEDS: buPROPion TAB* 100 MG PO SCH (08:51)
[2018-11-25] MEDS: Polyethylene Glycol 3350* 17 GM PACKET PO SCH (08:51)
[2018-11-25] MEDS: Insulin LISPRO* 1 UNITS UNIT SUBCUT SCH ×4 (08:54→21:25)
[2018-11-25] MEDS: DICLOFENAC 1% TOPICAL SCH ×3 (08:56→21:25)
[2018-11-25] MEDS ORDERED: Aspirin 81 mg CHEW TAB* 81 MG TAB.CHEW PO SCH (09:00)
[2018-11-25 10:01] LABS: ABS Basophils 0.1 10^3/ul (0-0.2); ABS Eosinophils 0 10^3/ul (0-0.6); ABS Lymphocytes 1.7 10^3/ul (1.0-4.8); ABS Monocytes 0.3 10^3/ul (0-0.8); ABS Neutrophils 3.4 10^3/ul (1.5-7.7); ABS Nucleated RBC 0 10^3/ul; Eosinophil % 0.7 %; Hematocrit 37 % (35-47); Hemoglobin 12.1 g/dl (12.0-16.0); Lymphocyte % 30.5 %; Mean Corpuscular HGB Conc 33 g/dl (31-36); Mean Corpuscular Hemoglobin 30 pg (27-31); Mean Corpuscular Volume 91 fL (80-97); Mean Platelet Volume 11.2 fL (7.4-10.4); Nucleated Red Blood Cells % 0.1; Platelet Count 57 10^3/ul (150-450); Red Blood Count 4.04 10^6/ul (4.00-5.40); Red Cell Distribution Width 13 % (10.5-15); White Blood Count 5.4 10^3/ul (3.5-10.8)
[2018-11-25 10:22] LABS: BUN/Creatinine Ratio 21.7 (8-20); Calcium 8.2 mg/dL (8.6-10.3); EGFR African American 107.7 (>60); Magnesium 1.7 mg/dL (1.9-2.7); Potassium 4.2 mmol/L (3.5-5.0)
[2018-11-25] MEDS ORDERED: NS 0.9% 1000 ML** 1,000 ML IV SCH (10:30)
--- NOTE | 2018-11-25 12:27 | PN ---
Subjective Date of Service: 11/25/18 Interval History: Pt feels that her mentation is not fully back to normal. Denies CP/SOB Had been ill with polyuria na polydypsia x 2 months. does not remember when she last saw her PCP, but definitely not in th new year. Pt has had LE's wounds for at least 6 months now. smokes 1/2 PPD, uses CPAP at night at home, but no 02 Objective Active Medications: Acetaminophen (Tylenol Adult Liq*) 650 mg PO Q4H PRN PRN Reason: FEVER/PAIN Last Admin: 11/22/18 18:38 Dose: 650 mg Amitriptyline HCl (Elavil Tab*) 25 mg PO BEDTIME [facility] Last Admin: 11/24/18 21:02 Dose: 25 mg Aspirin (Aspirin 81 Mg Chew Tab*) 81 mg PO DAILY [facility] Last Admin: 11/25/18 09:00 Dose: 81 mg Atenolol (Tenormin Tab*) 25 mg PO DAILY [facility] Last Admin: 11/25/18 08:50 Dose: 25 mg Bupropion HCl (Wellbutrin Tab*) 100 mg PO DAILY [facility] Last Admin: 11/25/18 08:51 Dose: 100 mg Dextrose (D50w Syringe 50 Ml*) 12.5 gm IV PUSH .FOR FS < 60 - SS PRN PRN Reason: FS < 60 Diclofenac Sodium (Voltaren 1% Gel (Nf)) 1 applic TOPICAL TID [facility]; Protocol Last Admin: 11/25/18 08:56 Dose: 1 applic Piperacillin Sod/Tazobactam (Sod 3.375 gm/ Sodium Chloride) 100 mls @ 25 mls/ hr IVPB Q8H [facility] Last Admin: 11/25/18 04:42 Dose: 25 mls/hr Vancomycin HCl 1,250 mg/ (Sodium Chloride) 250 mls @ 166.667 mls/hr IVPB Q8H [facility] Last Admin: 11/25/18 08:57 Dose: 166.667 mls/hr Sodium Chloride (Ns 0.9% 1000 Ml) 1,000 mls @ 0 mls/hr IV KVO [facility] Insulin Glargine (Lantus(*)) 15 units SUBCUT Q24H [facility] Last Admin: 11/24/18 11:58 Dose: 15 units Insulin Human Lispro (Humalog*) 0 units SUBCUT FS ACHS ICU [facility]; Protocol Last Admin: 11/25/18 08:54 Dose: 6 units Ondansetron HCl (Zofran Inj*) 4 mg IV Q4H PRN PRN Reason: NAUSEA/VOMITING Last Admin: 11/24/18 04:54 Dose: 4 mg Oxycodone HCl (Oxycodone Oral.Soln*) 5 mg PO Q8H PRN PRN Reason: PAIN Last Admin: 11/24/18 14:42 Dose: 5 mg Pharmacy Consult (Zosyn Per Pharmacy*) 1 note FOLLOW UP .ZOSYN PER PHARMACY [facility] Pharmacy Consult (Vancomycin Per Pharmacy*) 1 note FOLLOW UP . PRN PRN Reason: PER PROTOCOL Polyethylene Glycol/Electrolytes (Miralax*) 17 gm PO DAILY [facility] Last Admin: 11/25/18 08:51 Dose: 17 gm Topiramate (Topamax(*)) 25 mg PO BID [facility] Last Admin: 11/25/18 08:51 Dose: 25 mg Trazodone HCl (Desyrel Tab*) 50 mg PO BEDTIME [facility] Last Admin: 11/24/18 21:02 Dose: 50 mg Vital Signs - 8 hr 11/25/18 11/25/18 11/25/18 04:49 07:04 08:00 Temperature 98.2 F 98.3 F Pulse Rate 93 97 Respiratory 18 20 16 Rate Blood Pressure 124/72 116/67 (mmHg) O2 Sat by Pulse 94 94 94 Oximetry Oxygen Devices in Use Now: Nasal Cannula Result Diagrams: 11/25/18 09:30 11/25/18 09:30 Microbiology and Other Data: Microbiology 11/21/18 22:04 Aerobic Blood Culture - Preliminary Blood Venous No Growth Day 3 Anaerobic Blood Culture - Preliminary No Growth Day 3 11/22/18 18:48 Aerobic Blood Culture - Preliminary Blood Venous No Growth Day 2 Anaerobic Blood Culture - Preliminary No Growth Day 2 11/22/18 17:18 Aerobic Blood Culture - Preliminary Blood Venous No Growth Day 2 Anaerobic Blood Culture - Preliminary No Growth Day 2 11/22/18 05:00 Urine Culture - Final Urine No Growth (<1,000 CFU/mL) 11/22/18 02:45 Nasal Screen MRSA (PCR) - Final Nasal Mrsa Not Detected Assess/Plan/Problems-Billing Assessment: 52 F with hx/o chronic pain on intrathecal pump (managed by a doctor in [place]) transferred to ICU care on 11/22/18 due to progressive AMS in the setting of hypernatremia. She was BIBA for suspected DKA 1 day prior from [facility] with FSBG 1000 and AG 21. At that time her Na+ >160 11/22: Patient was somnolent all day. She had episodes of intermittent hypoxemia with increased WOB. Patient intubated late in the evening for airway protection 11/23: Patient extubated. 11/24-pt transferred from ICU - Patient Problems (1) Encephalopathy acute Comment: Due to hyponatremia and DKA so far no evidence of infection. LP and MRI not doen when pt was acutely encephalopathic. Now mentation much improved. will d/c Zosyn /Vanc and monitor (2) DKA (diabetic ketoacidoses) Comment: resolved. HbA1C>18 Now pt on Lantus and ISS Pt was not aware of ebing diabetic before. DM nutrition and education consult requested. Pt is aware of need to use insulin at home (3) Thrombocytopenia Comment: suspicious for HIT PF4 anibody ordered. Heparin products stopped. no evidence of bleeding cot to monitor plt level (4) HTN (hypertension) Comment: cont Atenolol, controled (5) Troponin I above reference range Comment: will recheck in AM, suspect due to demand ischemia Echo shows EF 65% with no wall motion abn (6) Hypernatremia Comment: resolved (7) Open wound of both legs with complication Comment: appears to be due to venous stasis Wound care soncult in place (8) DVT prophylaxis Comment: no heparin due to thrombocytopenia SCD's (9) BREE (obstructive sleep apnea) Comment: CPAP nightly (10) Chronic pain Comment: s/p inrathecal pump placement cont oxycodone prn Status and Disposition: inpatient
[2018-11-25] MEDS: Insulin GLARGINE(*) 1 UNITS UNIT SUBCUT SCH (12:54)
[2018-11-25] MEDS: Magnesium Oxide TAB* 400 MG PO SCH (14:55)
[2018-11-25] MEDS: traZODone TAB* 50 MG TAB PO SCH (21:23)
[2018-11-25] MEDS: Amitriptyline TAB* 25 MG PO SCH (21:23)
[2018-11-26 06:01] LABS: Hematocrit 36 % (35-47); Hemoglobin 11.8 g/dl (12.0-16.0); Mean Corpuscular HGB Conc 33 g/dl (31-36); Mean Corpuscular Hemoglobin 30 pg (27-31); Mean Corpuscular Volume 91 fL (80-97); Red Cell Distribution Width 13 % (10.5-15); White Blood Count 4.4 10^3/ul (3.5-10.8)
[2018-11-26 06:08] LABS: ABS Basophils 0 10^3/ul (0-0.2); ABS Eosinophils 0.1 10^3/ul (0-0.6); ABS Lymphocytes 1.9 10^3/ul (1.0-4.8); ABS Monocytes 0.5 10^3/ul (0-0.8); ABS Neutrophils 1.9 10^3/ul (1.5-7.7); ABS Nucleated RBC 0 10^3/ul; Eosinophil % 1.6 %; Lymphocyte % 44.3 %; Mean Platelet Volume 10.9 fL (7.4-10.4); Nucleated Red Blood Cells % 0.1; Platelet Count 78 10^3/ul (150-450)
[2018-11-26 06:23] LABS: Albumin 2.7 g/dL (3.2-5.2); C Reactive Protein 31.05 mg/L (<8.01); Calcium 8.5 mg/dL (8.6-10.3); EGFR African American 115.4 (>60); EGFR Non-African American 95.3 (>60); Globulin 2.7 g/dL (2-4); Magnesium 1.8 mg/dL (1.9-2.7); Potassium 4.1 mmol/L (3.5-5.0); Total Bilirubin 0.5 mg/dL (0.2-1.0); Total Protein 5.4 g/dL (6.4-8.9)
[2018-11-26] MEDS: Polyethylene Glycol 3350* 17 GM PACKET PO SCH (09:01)
[2018-11-26] MEDS: Topiramate TAB(*) 25 MG PO SCH ×2 (09:11→21:15)
[2018-11-26] MEDS: Magnesium Oxide TAB* 400 MG PO SCH ×2 (09:11→21:14)
[2018-11-26] MEDS: buPROPion TAB* 100 MG PO SCH (09:11)
[2018-11-26] MEDS: DICLOFENAC 1% TOPICAL SCH ×3 (09:12→22:47)
[2018-11-26] MEDS: oxyCODONE ORAL.SOLN* 5 MG/5 ML UDC PO PRN (09:12)
[2018-11-26] MEDS: Atenolol TAB* 25 MG PO SCH (09:12)
[2018-11-26] MEDS: Insulin LISPRO* 1 UNITS UNIT SUBCUT SCH ×4 (09:13→21:15)
[2018-11-26] MEDS: Insulin GLARGINE(*) 1 UNITS UNIT SUBCUT SCH (09:22)
--- NOTE | 2018-11-26 14:47 | CONSULT ---
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 There are no obvious factors -- steroids , systemic infection, other medications, illness, etc -- that could have aggravated diabetes. I suspect she experienced acute "glucotoxicity" causing relative insulinopenia and made worse by hydration with sugar-sweetened beverages. Her metabolic acidosis resolved quickly. Her current insulin requirement is estimated to be at least 80 units/day and should be given as a 4- shot basal/bolous regimen, as below. PLAN: - check C-peptide and GAD65 antibody this admission (done) - INCREASE insulin glargine to 25 units BID - change insulin glargine to 40 units QHS at time of discharge - START insulin lispro 10 units TID-AC with meals - continue insulin lispro sliding scale - START metformin ER 750mg QHS at discharge - FOLLOW-UP with [facility] End[facility]ology in 2 weeks SUBJECTIVE: History of Present Illness: 52 yo F with chronic back pain syndrome, CKD-3 and lymphedema, admitted via ED for altered mental status and hyperglycemia with acidosis. She has no history of diabetes, but has had increasing polyuria/ polydipsia for several weeks leading up to admission, forcing her to consume increasing amounts of water, soda and sweet tea to stay hydrated. Her only other recent medical history is URI (sinusitis) and lower extremity water blisters. These have apparently been evaluated by PCP (Stevie in [place], [place]) but she has not been told that she has diabetes before. Past Medical History: 1. Chronic back pain syndrome s/p intrathecal pump 2. CKD-3 of unknown etiology 3. Hypertension 4. Lymphedema 5. Depression Medications Prior to Admission: Amitriptyline TAB* [Elavil TAB*] 50 mg PO BEDTIME 05/01/16 [History Confirmed ] Ascorbic Acid [Vitamin C] 500 mg PO QAM 05/01/16 [History Confirmed 11/23/18] Aspirin 81 mg CHEW TAB* 81 mg PO QAM 05/01/16 [History Confirmed 11/23/18] Atenolol TAB* [Tenormin TAB* 25 MG] 25 mg PO QAM 05/01/16 [History Confirmed 06/05] Diclofenac 1% GEL (NF) [Voltaren 1% GEL (NF)] 1 applic TOPICAL TID 05/01/16 [ History Confirmed 11/23/18] Fluticasone NASAL SPRAY 50MCG* [Flonase NASAL SPRAY 50MCG*] 2 spray BOTH NARES DAILY PRN 05/01/16 [History Confirmed 11/23/18] Furosemide TAB* [Lasix TAB*] 20 mg PO QAM 05/01/16 [History Confirmed 06/07/16] Intrathecal Pain Pump 1 dose INTRATHEC SEE INSTRUCTIONS 05/01/16 [History Confirmed 11/23/18] Lidaderm Patches 1 - 3 patch TOPICAL DAILY PRN 05/01/16 [History Confirmed 11/23] Morphine TAB (NF) 1 tab PO Q4HR PRN MDD 6 tablets 05/01/16 [History Confirmed ] Ondansetron HCl [Zofran 4 MG TAB] 4 mg PO Q6HR PRN 05/01/16 [History Confirmed 11/23/18] Topiramate TAB(*) [Topamax 25 MG tab] 25 mg PO BID 05/01/16 [History Confirmed 11/23/18] Vitamin E 2 tab PO QAM 05/01/16 [History Confirmed 11/23/18] Zolpidem Tartrate [Ambien] 5 mg PO BEDTIME PRN 05/01/16 [History Confirmed 11/23] traZODone TAB* [Desyrel TAB*] 100 mg PO BEDTIME 05/01/16 [History Confirmed 06/05] Antifungal 1 dose TOPICAL DAILY 06/02/16 [History Confirmed 06/07/16] Polyethylene Glycol 3350 [Miralax] 1 pow PO .MIDDAY 06/02/16 [History Confirmed 11/23/18] buPROPion HCl [Bupropion Xl] 150 mg PO DAILY 06/07/16 [History Confirmed ] Bumex 1 MG TAB* 1 mg PO DAILY 11/23/18 [History Confirmed 11/23/18] Inpatient Medications: Acetaminophen (Tylenol Adult Liq*) 650 mg PO Q4H PRN PRN Reason: FEVER/PAIN Last Admin: 11/22/18 18:38 Dose: 650 mg Amitriptyline HCl (Elavil Tab*) 25 mg PO BEDTIME [facility] Last Admin: 11/25/18 21:23 Dose: 25 mg Atenolol (Tenormin Tab*) 25 mg PO DAILY [facility] Last Admin: 11/26/18 09:12 Dose: 25 mg Bupropion HCl (Wellbutrin Tab*) 100 mg PO DAILY [facility] Last Admin: 11/26/18 09:11 Dose: 100 mg Dextrose (D50w Syringe 50 Ml*) 12.5 gm IV PUSH .FOR FS < 60 - SS PRN PRN Reason: FS < 60 Diclofenac Sodium (Voltaren 1% Gel (Nf)) 1 applic TOPICAL TID [facility]; Protocol Last Admin: 11/26/18 16:29 Dose: Not Given Insulin Glargine (Lantus(*)) 25 units SUBCUT Q24H [facility] Last Admin: 11/26/18 09:22 Dose: 25 units Insulin Human Lispro (Humalog*) 0 units SUBCUT FS ACHS ICU [facility]; Protocol Last Admin: 11/26/18 17:26 Dose: 9 units Magnesium Oxide (Magox 400 Tab*) 800 mg PO BID [facility] Ondansetron HCl (Zofran Inj*) 4 mg IV Q4H PRN PRN Reason: NAUSEA/VOMITING Last Admin: 11/24/18 04:54 Dose: 4 mg Oxycodone HCl (Oxycodone Oral.Soln*) 5 mg PO Q8H PRN PRN Reason: PAIN Last Admin: 11/26/18 09:12 Dose: 5 mg Polyethylene Glycol/Electrolytes (Miralax*) 17 gm PO DAILY [facility] Last Admin: 11/26/18 09:01 Dose: Not Given Topiramate (Topamax(*)) 25 mg PO BID [facility] Last Admin: 11/26/18 09:11 Dose: 25 mg Trazodone HCl (Desyrel Tab*) 50 mg PO BEDTIME [facility] Last Admin: 11/25/18 21:23 Dose: 50 mg Allergies/Intolerances: benzocaine Allergy (Severe, Verified 11/21/18 23:37) Swelling OF THROAT benzonatate Allergy (Severe, Verified 11/21/18 23:54) Airway Obstruction clindamycin Adverse Reaction (Severe, Verified 11/21/18 23:54) Nausea fentanyl Adverse Reaction (Severe, Verified 11/21/18 23:54) Nausea And Vomiting oxymorphone [From Opana] Adverse Reaction (Severe, Verified 11/22/18 00:11) Headache naproxen Adverse Reaction (Intermediate, Verified 11/22/18 00:11) Palpitations sumatriptan Adverse Reaction (Intermediate, Verified 11/22/18 00:11) Nausea Social History: Lives with . Active smoker 1/2 PPD. No alcohol. Family History: Father with T2DM. Review of Systems: As above. No recent fever. Legs more swollen recently. No dyspnea or chest pain. No nausea or vomiting. OBJECTIVE: Temp Pulse Resp BP Pulse Ox 98.0 F 73 12 99/50 98 11/26/18 16:44 11/26/18 16:44 11/26/18 12:22 11/26/18 16:44 11/26/18 11:07 General: alert, pleasant, oriented, no distress ENT: neck supple, no thyromegaly, no bruit is heard Chest: CTAB, no wheezing or crackles CV: RRR, no murmur Abdomen: soft, non-tender Extremities: (+++) edema, distal pulses present Skin: warm, dry, with open blisters, Neuro: grossly intact motor/sensory in extremities Psych: restricted affect, pleasant Labs: WBC 4.4 10^3/ul (3.5-10.8) 11/26/18 05:45 RBC 4.00 10^6/ul (4.00-5.40) 11/26/18 05:45 Hgb 11.8 g/dl (12.0-16.0) L 11/26/18 05:45 Hct 36 % (35-47) 11/26/18 05:45 MCV 91 fL (80-97) 11/26/18 05:45 MCH 30 pg (27-31) 11/26/18 05:45 MCHC 33 g/dl (31-36) 11/26/18 05:45 RDW 13 % (10.5-15) 11/26/18 05:45 Plt Count 78 10^3/ul (150-450) L 11/26/18 05:45 MPV 10.9 fL (7.4-10.4) H 11/26/18 05:45 Neut % (Auto) 42.7 % 11/26/18 05:45 Lymph % (Auto) 44.3 % 11/26/18 05:45 [place] % (Auto) 10.4 % 11/26/18 05:45 Eos % (Auto) 1.6 % 11/26/18 05:45 Baso % (Auto) 1.0 % 11/26/18 05:45 Absolute Neuts (auto) 1.9 10^3/ul (1.5-7.7) 11/26/18 05:45 Absolute Lymphs (auto) 1.9 10^3/ul (1.0-4.8) 11/26/18 05:45 Absolute Monos (auto) 0.5 10^3/ul (0-0.8) 11/26/18 05:45 Absolute Eos (auto) 0.1 10^3/ul (0-0.6) 11/26/18 05:45 Absolute Basos (auto) 0 10^3/ul (0-0.2) 11/26/18 05:45 Absolute Nucleated RBC 0 10^3/ul 11/26/18 05:45 Nucleated RBC % 0.1 11/26/18 05:45 Clumped Platelets Present 11/23/18 04:09 ESR 29 mm/Hr (0-30) 11/22/18 04:30 Hem Pathologist Commnt 11/24/18 05:10 INR (Anticoag Therapy) 0.99 (0.77-1.02) 11/21/18 22:04 APTT 28.3 seconds (26.0-36.3) 11/21/18 22:04 HIT Functional 0.081 OD (<0.400) 11/25/18 11:00 Patient Temperature Not Reportable 11/21/18 21:05 ABG pH 7.41 (7.35-7.45) 11/22/18 20:20 ABG pH (Temp Correct) Attendant Child Activity 11/21/18 21:05 ABG pCO2 55 mmHg (35-45) H 11/22/18 20:20 ABG pCO2 (Temp Corrct Not Reportable 11/21/18 21:05 ABG pO2 218 mmHg (80-100) H 11/22/18 20:20 ABG pO2 (Temp Correct Not Reportable 11/21/18 21:05 ABG HCO3 31.5 mmol/L (19-31) H 11/22/18 20:20 ABG O2 Saturation 99.9 % (94.0-98.0) H 11/22/18 20:20 ABG Base Excess 8.4 mmol/L (-2.0-2.0) H 11/22/18 20:20 VBG pH 7.38 (7.32-7.43) 11/22/18 17:18 VBG pCO2 63 mmHg (41-51) H 11/22/18 17:18 VBG pO2 < 38.0 mmHg (35-45) 11/22/18 17:18 VBG HCO3 31.6 mmol/L (24-28) H 11/22/18 17:18 VBG O2 Saturation 64.1 % (70-80) L 11/22/18 17:18 VBG Base Excess 9.7 mmol/L (0.0-4.0) H 11/22/18 17:18 Respiration Rate Not Reportable 11/21/18 21:05 O2 Delivery Device nc 11/21/18 21:05 Ventilator Type Not Reportable 11/21/18 21:05 Vent Mode Not Reportable 11/21/18 21:05 FiO2 3 11/21/18 21:05 Inspiratory Time Not Reportable 11/21/18 21:05 PEEP Not Reportable 11/21/18 21:05 Pressure Support Not Reportable 11/21/18 21:05 Pressure Control Not Reportable 11/21/18 21:05 EPAP Not Reportable 11/21/18 21:05 IPAP Not Reportable 11/21/18 21:05 BiPAP Not Reportable 11/21/18 21:05 Sodium 136 mmol/L (135-145) 11/26/18 05:45 Potassium 4.1 mmol/L (3.5-5.0) 11/26/18 05:45 Chloride 104 mmol/L (101-111) 11/26/18 05:45 Carbon Dioxide 27 mmol/L (22-32) 11/26/18 05:45 Anion Gap 5 mmol/L (2-11) 11/26/18 05:45 BUN 13 mg/dL (6-24) 11/26/18 05:45 Creatinine 0.65 mg/dL (0.51-0.95) 11/26/18 05:45 Est GFR ( Amer) 115.4 (>60) 11/26/18 05:45 Est GFR (Non-Af Amer) 95.3 (>60) 11/26/18 05:45 BUN/Creatinine Ratio 20.0 (8-20) 11/26/18 05:45 Glucose 342 mg/dL (70-100) H 11/26/18 05:45 POC Glucose (mg/dL) 255 mg/dL (70-100) H 11/26/18 17:06 Glucose Meter Confirm 454 mg/dL (70-100) H 11/23/18 20:55 Hemoglobin A1c >18.0 % (4.0-5.6) H 11/21/18 22:04 Serum Osmolality 365 mOsm/kg (275-295) H* 11/21/18 22:04 Lactic Acid 1.4 mmol/L (0.5-2.0) 11/22/18 01:15 Calcium 8.5 mg/dL (8.6-10.3) L 11/26/18 05:45 Phosphorus 2.3 mg/dL (2.5-5.0) L 11/24/18 05:10 Magnesium 1.8 mg/dL (1.9-2.7) L 11/26/18 05:45 Total Bilirubin 0.50 mg/dL (0.2-1.0) 11/26/18 05:45 AST 34 U/L (13-39) 11/26/18 05:45 ALT 59 U/L (7-52) H 11/26/18 05:45 Alkaline Phosphatase 174 U/L (34-104) H 11/26/18 05:45 Total Creatine Kinase 25 U/L (10-223) 11/21/18 22:04 Troponin I 0.03 ng/mL (<0.04) 11/26/18 05:45 C-Reactive Protein 31.05 mg/L (<8.01) H 11/26/18 05:45 C-React Prot High Sens 13.33 mg/L (<2.00) H 11/22/18 13:49 Total Protein 5.4 g/dL (6.4-8.9) L 11/26/18 05:45 Albumin 2.7 g/dL (3.2-5.2) L 11/26/18 05:45 Globulin 2.7 g/dL (2-4) 11/26/18 05:45 Albumin/Globulin Ratio 1.0 (1-3) 11/26/18 05:45 Triglycerides 2620 mg/dL 11/22/18 05:11 Cholesterol 575 mg/dL 11/22/18 05:11 LDL Cholesterol mg/dL 11/22/18 05:11 LDL Cholesterol Direct 68 mg/dL 11/22/18 05:11 HDL Cholesterol 17.2 mg/dL 11/22/18 05:11 TSH 0.13 mcIU/mL (0.34-5.60) L 11/21/18 22:04 Free T4 0.75 ng/dL (0.61-1.12) 11/21/18 22:04 Urine Color Straw 11/22/18 05:00 Urine Appearance Turbid 11/22/18 05:00 Urine pH 5.0 (5-9) 11/22/18 05:00 Ur Specific Ubly 1.035 (1.010-1.030) H 11/22/18 05:00 Urine Protein 2+(100 mg/dl) (Negative) A 11/22/18 05:00 Urine Ketones 1+ (Negative) A 11/22/18 05:00 Urine Blood Negative (Negative) 11/22/18 05:00 Urine Nitrate Negative (Negative) 11/22/18 05:00 Urine Bilirubin Negative (Negative) 11/22/18 05:00 Urine Urobilinogen Negative (Negative) 11/22/18 05:00 Ur Leukocyte Esterase Trace (Negative) A 11/22/18 05:00 Urine WBC (Auto) Trace(0-5/hpf) (Absent) 11/22/18 05:00 Urine RBC (Auto) 2+(6-10/hpf) (Absent) A 11/22/18 05:00 Ur Squamous Epith Cells Present (Absent) A 11/22/18 05:00 Urine Bacteria Absent (Absent) 11/22/18 05:00 Urine Glucose 3+(>=500 mg/dl) (Negative) A 11/22/18 05:00 Urine Ascorbic Acid * (Negative) A 11/22/18 05:00 Vancomycin Trough 12.7 mcg/mL 11/24/18 16:15 Heparin-PF4 Ab Interp Negative (Negative) 11/25/18 11:00 Heparin-PF4 Ab Comment See comment 11/25/18 11:00
--- NOTE | 2018-11-26 16:59 | PN ---
Subjective Date of Service: 11/26/18 Interval History: Pt feels better and stronger every day.Has had some loose BM's recently but no too frequent and denies abd pain. Objective Active Medications: Acetaminophen (Tylenol Adult Liq*) 650 mg PO Q4H PRN PRN Reason: FEVER/PAIN Last Admin: 11/22/18 18:38 Dose: 650 mg Amitriptyline HCl (Elavil Tab*) 25 mg PO BEDTIME [facility] Last Admin: 11/25/18 21:23 Dose: 25 mg Atenolol (Tenormin Tab*) 25 mg PO DAILY [facility] Last Admin: 11/26/18 09:12 Dose: 25 mg Bupropion HCl (Wellbutrin Tab*) 100 mg PO DAILY [facility] Last Admin: 11/26/18 09:11 Dose: 100 mg Dextrose (D50w Syringe 50 Ml*) 12.5 gm IV PUSH .FOR FS < 60 - SS PRN PRN Reason: FS < 60 Diclofenac Sodium (Voltaren 1% Gel (Nf)) 1 applic TOPICAL TID [facility]; Protocol Last Admin: 11/26/18 16:29 Dose: Not Given Sodium Chloride (Ns 0.9% 1000 Ml) 1,000 mls @ 0 mls/hr IV KVO [facility] Last Admin: 11/25/18 17:41 Dose: 20 mls/hr Insulin Glargine (Lantus(*)) 25 units SUBCUT Q24H [facility] Last Admin: 11/26/18 09:22 Dose: 25 units Insulin Human Lispro (Humalog*) 0 units SUBCUT FS ACHS ICU [facility]; Protocol Last Admin: 11/26/18 13:03 Dose: 15 units Magnesium Oxide (Magox 400 Tab*) 800 mg PO DAILY [facility] Last Admin: 11/26/18 09:11 Dose: 800 mg Ondansetron HCl (Zofran Inj*) 4 mg IV Q4H PRN PRN Reason: NAUSEA/VOMITING Last Admin: 11/24/18 04:54 Dose: 4 mg Oxycodone HCl (Oxycodone Oral.Soln*) 5 mg PO Q8H PRN PRN Reason: PAIN Last Admin: 11/26/18 09:12 Dose: 5 mg Polyethylene Glycol/Electrolytes (Miralax*) 17 gm PO DAILY [facility] Last Admin: 03/12/19 09:01 Dose: Not Given Topiramate (Topamax(*)) 25 mg PO BID [facility] Last Admin: 11/26/18 09:11 Dose: 25 mg Trazodone HCl (Desyrel Tab*) 50 mg PO BEDTIME [facility] Last Admin: 11/25/18 21:23 Dose: 50 mg Vital Signs - 8 hr 11/26/18 11/26/18 11/26/18 09:12 11:07 12:22 Temperature 97.9 F Pulse Rate 80 Respiratory 11 18 12 Rate Blood Pressure 111/55 (mmHg) O2 Sat by Pulse 98 Oximetry 11/26/18 16:44 Temperature 98.0 F Pulse Rate 73 Respiratory Rate Blood Pressure 99/50 (mmHg) O2 Sat by Pulse Oximetry Oxygen Devices in Use Now: None Appearance: 52 yo obese F in nAD, aAOx3 Eyes: No Scleral Icterus, PERRLA Ears/Nose/Mouth/Throat: NL Teeth, Lips, Gums, Mucous Membranes Moist Neck: NL Appearance and Movements; NL JVP, Trachea Midline Respiratory: Symmetrical Chest Expansion and Respiratory Effort, Clear to Auscultation Cardiovascular: NL Sounds; No Murmurs; No JVD, RRR Abdominal: NL Sounds; No Tenderness; No Distention Lymphatic: No Cervical Adenopathy Extremities: No Clubbing, Cyanosis, - - +1 b/l calf and ankle edema Skin: No Nodules or Sclerosis, - - muliple small 1-2 cm , shallow ulcers scattered on b/l LE's below the knees, no infection noted. ecchymoses on b/l UE' s after venipunctures Neurological: Alert and Oriented x 3, NL Muscle Strength and Tone Result Diagrams: 11/26/18 05:45 11/26/18 05:45 Microbiology and Other Data: Microbiology 11/21/18 22:04 Aerobic Blood Culture - Preliminary Blood Venous No Growth Day 3 Anaerobic Blood Culture - Preliminary No Growth Day 3 11/22/18 18:48 Aerobic Blood Culture - Preliminary Blood Venous No Growth Day 2 Anaerobic Blood Culture - Preliminary No Growth Day 2 11/22/18 17:18 Aerobic Blood Culture - Preliminary Blood Venous No Growth Day 2 Anaerobic Blood Culture - Preliminary No Growth Day 2 11/22/18 05:00 Urine Culture - Final Urine No Growth (<1,000 CFU/mL) 11/22/18 02:45 Nasal Screen MRSA (PCR) - Final Nasal Mrsa Not Detected Assess/Plan/Problems-Billing Assessment: 52 F with hx/o chronic pain on intrathecal pump (managed by a doctor in [place]) transferred to ICU care on 11/22/18 due to progressive AMS in the setting of hypernatremia. She was BIBA for suspected DKA 1 day prior from [facility] with FSBG 1000 and AG 21. At that time her Na+ >160 11/22: Patient was somnolent all day. She had episodes of intermittent hypoxemia with increased WOB. Patient intubated late in the evening for airway protection 11/23: Patient extubated. 11/24-pt transferred from ICU - Patient Problems (1) Encephalopathy acute Comment: Due to hypernatremia and DKA so far no evidence of infection. LP and MRI not done when pt was acutely encephalopathic. Now mentation back to baseline Zosyn /Vanc d/c'd on 11/25/18 (2) DKA (diabetic ketoacidoses) Comment: resolved. HbA1C>18 Now pt on Lantus and ISS Pt was not aware of being diabetic before. DM nutrition and education consult pending Pt is aware of need to use insulin at home. Appreciate DR. Avilez's consult (3) Thrombocytopenia Comment: suspicious for HIT PF4 anibody ordered. Heparin products stopped. no evidence of bleeding cot to monitor plt level, slowly improving (4) HTN (hypertension) Comment: cont Atenolol, controled (5) Troponin I above reference range Comment: suspect due to demand ischemia Echo shows EF 65% with no wall motion abn (6) Hypernatremia Comment: resolved (7) Open wound of both legs with complication Comment: appears to be due to venous stasis Wound care consult appreciated. ANISH's show mild arterial disease (8) DVT prophylaxis Comment: no heparin due to thrombocytopenia SCD's (9) BREE (obstructive sleep apnea) Comment: CPAP nightly (10) Chronic pain Comment: s/p inrathecal pump placement cont oxycodone prn Status and Disposition: inpatient. Geovani BA at d/c. Also PMRU consult pending
[2018-11-26 17:29] LABS: HIT ELISA 0.081 OD (<0.400)
[2018-11-26 17:46] LABS: Troponin I 0.03 ng/mL (<0.04)
[2018-11-26] MEDS: Amitriptyline TAB* 25 MG PO SCH (21:14)
[2018-11-26] MEDS: traZODone TAB* 50 MG TAB PO SCH (21:15)
[2018-11-27 07:43] LABS: ABS Basophils 0 10^3/ul (0-0.2); ABS Eosinophils 0.1 10^3/ul (0-0.6); ABS Monocytes 0.4 10^3/ul (0-0.8); ABS Neutrophils 1.7 10^3/ul (1.5-7.7); ABS Nucleated RBC 0 10^3/ul; Eosinophil % 1.9 %; Hematocrit 38 % (35-47); Hemoglobin 12.7 g/dl (12.0-16.0); Lymphocyte % 47.7 %; Mean Corpuscular HGB Conc 33 g/dl (31-36); Mean Corpuscular Hemoglobin 30 pg (27-31); Mean Corpuscular Volume 89 fL (80-97); Mean Platelet Volume 11.9 fL (7.4-10.4); Nucleated Red Blood Cells % 0.1; Platelet Count 105 10^3/ul (150-450); Red Blood Count 4.28 10^6/ul (4.00-5.40); Red Cell Distribution Width 13 % (10.5-15); White Blood Count 4.2 10^3/ul (3.5-10.8)
[2018-11-27 07:54] LABS: ALT 47 U/L (7-52); AST 22 U/L (13-39); Albumin 2.8 g/dL (3.2-5.2); Alkaline Phosphatase 150 U/L (34-104); Anion Gap 6 mmol/L (2-11); BUN/Creatinine Ratio 14.7 (8-20); Blood Urea Nitrogen 11 mg/dL (6-24); CO2 Carbon Dioxide 28 mmol/L (22-32); Calcium 8.9 mg/dL (8.6-10.3); Chloride 105 mmol/L (101-111); EGFR African American 97.8 (>60); EGFR Non-African American 80.8 (>60); Globulin 2.7 g/dL (2-4); Glucose 267 mg/dL (70-100); Potassium 4.2 mmol/L (3.5-5.0); Sodium 139 mmol/L (135-145); Total Protein 5.5 g/dL (6.4-8.9)
[2018-11-27] MEDS ORDERED: Vancomycin Trough Check NOTE FOLLOW UP ONE (08:00)
[2018-11-27] MEDS: Polyethylene Glycol 3350* 17 GM PACKET PO SCH (08:12)
[2018-11-27] MEDS: Insulin GLARGINE(*) 1 UNITS UNIT SUBCUT SCH (08:13)
[2018-11-27] MEDS: Insulin LISPRO* 1 UNITS UNIT SUBCUT SCH (08:13)
[2018-11-27] MEDS: Magnesium Oxide TAB* 400 MG PO SCH (08:14)
[2018-11-27] MEDS: buPROPion TAB* 100 MG PO SCH (08:14)
[2018-11-27] MEDS: Topiramate TAB(*) 25 MG PO SCH (08:14)
[2018-11-27] MEDS: Atenolol TAB* 25 MG PO SCH (08:14)
[2018-11-27] MEDS: DICLOFENAC 1% TOPICAL SCH (08:38)
[2018-11-27] MEDS ORDERED: Insulin GLARGINE(*) 1 UNITS UNIT SUBCUT SCH ×2 (11:00→11:30)
[2018-11-27] MEDS ORDERED: Dextrose 50% Syringe 50 ML* 25 GM/50 ML SYRINGE IV PUSH PRN (11:02)
--- NOTE | 2018-11-27 11:22 | PN ---
Progress Note - Progress Note Date of Service: 11/27/18 Note: Time spent on discharge including exam of patient, discussion with patient, nurse, CM, retail pharmacist, review of EMR and preparation of discharge documents is 50 minutes.
[2018-11-27] MEDS ORDERED: Insulin LISPRO* 1 UNITS UNIT SUBCUT SCH ×2 (11:30)
[2018-11-27 12:51] VITALS: BP 103/58
--- NOTE | 2018-11-27 13:05 | DS ---
CC: Dr. Keegan Avilez DISCHARGE SUMMARY: DATE OF ADMISSION: 11/22/18 DATE OF DISCHARGE: 11/27/18 HISTORY OF PRESENT ILLNESS: This is 52-year-old woman presented with altered mental status. She was in diabetic ketoacidosis. She was felt to have encephalopathy; the cause was never determined. She required intubation. She was cared for in the intensive care unit. Her encephalopathy resolved rat her quickly and completely. I suspect it was possibly due to polypharmacy effect, possibly serotonin effect. It could easily have been a withdrawal factor in there. I did psychologist counseling her on using reduced amounts of medications and particularly avoiding Ambein completely . She received some diabetic teaching. Dr. Avilez consulted on her and will follow up with her. She also had thrombocytopenia. This may suggest that her encephalopathy and thrombocytopenia mostly were due to viral infection which has resolved. The HIT testing was negative. Her platelet count ro se to 105,000 by the day of discharge. It was actually normal on admission, but fell to 57. I note t hat negative HIT testing, although it is a sensitive test, does not definitively rule out in all case s HIT and it should be borne in mind in future hospitalizations. FINAL DIAGNOSES: 1. Diabetes ketoacidosis. 2. Encephalopathy. 3. Polypharmacy. 4. Thrombocytopenia with negative HIT testing. 5. Elevated troponin level of 0.16 with normal electrocardiogram. Outpatient stress testing should be considered. 5. Chronic back pain. 6. Open wound of both legs; ANISH showed mild arterial disease. 7. Obstructive sleep apnea. 8. Chronic pain with intrathecal pump. DISCHARGE MEDICATIONS: 1. Metformin ER 750 mg daily at bedtime. 2. Bupropion 100 mg daily. 3. Glargine insulin 20 units b.i.d. 4. Lispro insulin 6 units before each meal. 5. Lispro corrective dose with each meal and at bedtime. 6. Trazodone 50 mg at bedtime. 7. Topiramate 25 mg b.i.d. 8. Fluticasone nasal spray 2 sprays both nares p.r.n. 9. Atenolol 25 mg daily. 10. Aspirin 81 mg daily. 11. Ondansetron 4 mg every 6 hours p.r.n. 12. Lidoderm patches as prescribed. 13. Intrathecal pain pump as prescribed. 14. Diclofenac 1% gel t.i.d. 15. Polyethylene glycol 17 g daily. 16. Antifungal medication as prescribed. DISPOSITION ON DISCHARGE: Discharged home. CONDITION ON DISCHARGE: Stable. [id number]/[facility] #: [id number]
--- NOTE | 2018-11-27 13:54 | CONSULT ---
Subjective Date of Service: 11/27/18 Interval History: Ms. Bains is a 52 yo female with PMH significant for HTN, depression, chronic back pain, CKD-3, and lymphedema who presented to the emergency room for AMS and was found to have hyperglycemia with acidosis. Ms. Bains was admitted with partial thickness ulcerations to bilateral posterior lower legs. She reports that she has had problems with swelling in her legs for years; further states that she has compression stockings, Juzo velcro closure stockings and compression pumps at home. She does not use any of the products consistently which results in recurrent swelling and ulcerations. Recently has been using mupirocin (bactroban) to open areas without much success. Family History: Unchanged from Admission Social History: Unchanged from Admission Past Medical History: Unchanged from Admission Review of Systems - Measurements Intake and Output: Intake and Output Last 24 Hours 11/25/18 11/26/18 11/27/18 11/28/18 06:59 06:59 06:59 06:59 Intake Total 750 1540 1840 Output Total 325 1000 Balance 425 1540 840 Intake: Oral 750 1540 1840 Output: Urine 50 1000 Germain 275 Other: Estimated Void Large Date of Last Bowel 11/26/18 Movement # Bowel Movements 1 2 Estimated Stool Amount Large Small # Voids 3 - Review of Systems Constitutional Symptoms: Negative: Fever, Other - Chills Dermatology: Positive: Other - Chronic open areas to bilateral LEs Objective Active Medications: Acetaminophen (Tylenol Adult Liq*) 650 mg PO Q4H PRN Reason: FEVER/PAIN Atenolol (Tenormin Tab*) 25 mg PO DAILY MAYLIN Bupropion HCl (Wellbutrin Tab*) 100 mg PO DAILY MAYLIN Dextrose (D50w Syringe 50 Ml*) 12.5 gm IV PUSH .FOR FS < 60 - SS PRN Reason: FS < 60 Dextrose (D50w Syringe 50 Ml*) 12.5 gm IV PUSH .FOR FS < 60 - SS PRN Reason: FS < 60 Diclofenac Sodium (Voltaren 1% Gel (Nf)) 1 applic TOPICAL TID MAYLIN; Protocol Insulin Glargine (Lantus(*)) 20 units SUBCUT Q12H MAYLIN Insulin Human Lispro (Humalog*) 0 units SUBCUT ACHS MAYLIN; Protocol Insulin Human Lispro (Humalog*) 6 units SUBCUT ACHS MAYLIN; Protocol Ondansetron HCl (Zofran Inj*) 4 mg IV Q4H PRN Reason: NAUSEA/VOMITING Polyethylene Glycol/Electrolytes (Miralax*) 17 gm PO DAILY [facility] Topiramate (Topamax(*)) 25 mg PO BID [facility] Trazodone HCl (Desyrel Tab*) 50 mg PO BEDTIME [facility] Vital Signs - 8 hr 11/27/18 11/27/18 11/27/18 07:28 08:00 11:59 Temperature 97.3 F 97.5 F Pulse Rate 74 71 Respiratory 16 16 16 Rate Blood Pressure 101/70 103/58 (mmHg) O2 Sat by Pulse 98 99 Oximetry Oxygen Devices in Use Now: None Appearance: NAD, sitting up in bed Ears/Nose/Mouth/Throat: Mucous Membranes Moist Skin: - - See skin note below Neurological: Alert and Oriented x 3 Result Diagrams: 11/27/18 07:22 11/27/18 07:22 Microbiology and Other Data: Microbiology 11/21/18 22:04 Aerobic Blood Culture - Preliminary Blood Venous No Growth Day 3 Anaerobic Blood Culture - Preliminary No Growth Day 3 11/22/18 18:48 Aerobic Blood Culture - Preliminary Blood Venous No Growth Day 2 Anaerobic Blood Culture - Preliminary No Growth Day 2 11/22/18 17:18 Aerobic Blood Culture - Preliminary Blood Venous No Growth Day 2 Anaerobic Blood Culture - Preliminary No Growth Day 2 11/22/18 05:00 Urine Culture - Final Urine No Growth (<1,000 CFU/mL) 11/22/18 02:45 Nasal Screen MRSA (PCR) - Final Nasal Mrsa Not Detected Skin Deviation Note - Skin Deviation Findings Left posterior/medial lower leg - wound cluster measures 3.3 cm x 4 cm x 0.1. The wound beds have a yellow slough. There is mild erythema to the surrounding skin. No drainage noted. Right medial lower leg - 1.4 cm x 1 cm x 0.1 cm. The wound base is dry. The surrounding skin is intact with mild erythema. No drainage noted. Assessment/Plan: Ms. Bains is a 52 yo female with PMH significant for HTN, depression, chronic back pain, CKD-3, and lymphedema who presented to the emergency room for AMS and was found to have hyperglycemia with acidosis. Ms. Bains was admitted with partial thickness ulcerations to bilateral posterior lower legs. 1. Wounds to bilateral LE. Suspect these are secondary to arterial ulcers. 11/26 0912 VL ANK/BRACHIAL INDICES - "The ankle brachial index on the right was 0.88 and on the left was 0.98. The ankle brachial indices on the prior study were 1.13 and 1.15 respectively. There is triphasic flow within the right posterior tibial artery and triphasic flow within the right dorsalis pedis artery. There is triphasic flow within the left posterior tibial artery and triphasic flow within the left dorsalis pedis artery". IMPRESSION: MILDLY DECREASED ANKLE-BRACHIAL INDICES SUGGESTIVE OF MILD PERIPHERAL ARTERIAL DISEASE. Apply antibiotic ointment to the open areas and a dry dressing. Consider referral to the wound center at discharge. 2. Diabetes Mellitus. HgA1C >18. Patient need to improve and maintain good glycemic control to allow for wound healing. 3. Lymphedema. Non compliant with wraps at home. Could consider referral to lymphedema clinic at discharge. 4. Code Status. Full Code 5. Disposition. Inpatient with disposition per primary medicine team. TIME SPENT: Time for this wound consultation was 25 minutes, and 15 minutes was spent with the patient discussing past medical history, assessing, measuring, and photographing the wounds. Wound Problem/Plan Is Patient a Wound Clinic Patient: No Attending: Nelly Martines
[2018-11-27 15:02] LABS: GPIIb/IIIa (Cell-1) Negative; GPIIb/IIIa (Cell-2) Negative; GPIV Negative; GPIa/IIa (Cell-1) Negative; GPIa/IIa (Cell-2) Negative; GPIb/IX Negative; Platelet Count x 10(9)/L? 57
== END 2018-11-27 14:00 | disposition home or self-care (01) | DRG 420 ==
LOC: ED 21:01 → ICU 11-22 01:29 → MEDTELE 11-24 14:09
PROVIDERS: ADMIT Pediatrics; ATTEND Internal Medicine
PROC: 5A09357 Assistance with Respiratory Ventilation, Less than 24 Consecutive Hours, Continuous Positive Airway Pressure (ICD-10-PCS; principal; 2018-11-22)
PROC: 0BH17EZ Insertion of Endotracheal Airway into Trachea, Via Natural or Artificial Opening (ICD-10-PCS; 2018-11-22)
PROC: 5A1935Z Respiratory Ventilation, Less than 24 Consecutive Hours (ICD-10-PCS; 2018-11-22)
PROC: 02HV33Z Insertion of Infusion Device into Superior Vena Cava, Percutaneous Approach (ICD-10-PCS; 2018-11-22)
PROC: 0BP1XDZ Removal of Intraluminal Device from Trachea, External Approach (ICD-10-PCS; 2018-11-22)
DX: E10.10 Type 1 diabetes mellitus with ketoacidosis without coma (principal); J96.21 Acute and chronic respiratory failure with hypoxia; L97.929 Non-pressure chronic ulcer of unspecified part of left lower leg with unspecified severity; L97.919 Non-pressure chronic ulcer of unspecified part of right lower leg with unspecified severity; G93.40 Encephalopathy, unspecified; N17.9 Acute kidney failure, unspecified; F19.939 Other psychoactive substance use, unspecified with withdrawal, unspecified; E87.0 Hyperosmolality and hypernatremia; I12.9 Hypertensive chronic kidney disease with stage 1 through stage 4 chronic kidney disease, or unspecified chronic kidney disease; G47.33 Obstructive sleep apnea (adult) (pediatric); F17.210 Nicotine dependence, cigarettes, uncomplicated; K59.09 Other constipation; M19.90 Unspecified osteoarthritis, unspecified site; G43.909 Migraine, unspecified, not intractable, without status migrainosus; I89.0 Lymphedema, not elsewhere classified; F90.9 Attention-deficit hyperactivity disorder, unspecified type; F41.9 Anxiety disorder, unspecified; E10.22 Type 1 diabetes mellitus with diabetic chronic kidney disease; N18.3 Chronic kidney disease, stage 3 (moderate); R74.8 Abnormal levels of other serum enzymes; D69.6 Thrombocytopenia, unspecified; D72.829 Elevated white blood cell count, unspecified; E10.51 Type 1 diabetes mellitus with diabetic peripheral angiopathy without gangrene; B34.9 Viral infection, unspecified; F32.9 Major depressive disorder, single episode, unspecified; Z96.89 Presence of other specified functional implants; T50.995A Adverse effect of other drugs, medicaments and biological substances, initial encounter; E04.2 Nontoxic multinodular goiter; E86.0 Dehydration; G89.4 Chronic pain syndrome; M54.9 Dorsalgia, unspecified; Z82.49 Family history of ischemic heart disease and other diseases of the circulatory system; Z88.6 Allergy status to analgesic agent; Z88.1 Allergy status to other antibiotic agents; Z82.0 Family history of epilepsy and other diseases of the nervous system; Z86.14 Personal history of Methicillin resistant Staphylococcus aureus infection; Z88.8 Allergy status to other drugs, medicaments and biological substances; Y92.9 Unspecified place or not applicable; Z79.4 Long term (current) use of insulin; Z79.82 Long term (current) use of aspirin
CPT/HCPCS: 36415; 36600; 70450; 71045; 72125; 72192; 74176; 80048; 80053; 80061; 80076; 80202; 81003; 81015; 82550; 82803; 82947; 83036; 83605; 83721; 83735; 83930; 84100; 84300; 84439; 84443; 84484; 84681; 85025; 85060; 85610; 85652; 85730; 86022; 86140; 86141; 86341; 87040; 87086; 87641; 93005; 93306; 93922; 94002; 94660; 99285; A9270-GY; C8929; G8978-GP-CJ; G8979-GP-CI; G8987-GO-CK; G8988-GO-CI; J0330; J1630; J1644; J1815; J2060; J2270; J2310; J2405; J2543; J2704; J3010; J3370; J3480; J3490